=== PATIENT | male | born 1955 | race Caucasian/White ===

== ENCOUNTER 2022-03-10 08:58 | Emergency (ER) | payer MEDICAID ==
[~2022-03-10] VITALS: Ht 182.9 cm; Wt 136.1 kg
--- NOTE | 2022-03-10 09:35 | Diagnostic Imaging Report ---
EXAMINATION: Left foot radiographs, 3 views. COMPARISON: None. HISTORY: 66-year-old male, left foot pain after injury. FINDINGS: There is normal variant congenital fusion of the fifth digit middle and distal phalanges. There is a normal variant os peroneum. There is a calcaneal heel spur. There is soft tissue swelling dorsally at the level of the metatarsals. There is no identified radiopaque foreign body. There is no identified acute fracture. IMPRESSION: 1. No identified acute bony abnormality of the left foot. 2. Dorsal soft tissue swelling at the level of the metatarsals. 3. No identified radiopaque foreign body. Dictated by: Dictated on workstation # [id number]
--- NOTE | 2022-03-10 09:46 | ED Lower Extremity ---
General Chief Complaint: Lower Extremity Stated Complaint: LT FOOT INJ Nursing Triage Note: PT AMBULATE TO ROOM FS02 WITHOUT DIFFICULTY WITH C/O LEFT FOOT PAIN SINCE THURSDAY. PT REPORTS A PLASTIC GROCERY BAG BROKE AND A [address] MATTHEW FELL ONTO THE TOP OF LEFT FOOT. PT STATES HE HAS NOT NEEDED ANYTHING FOR PAIN. Source: patient Exam Limitations: no limitations History of Present Illness Date Seen by Provider: Mar 10, 2022 Time Seen by Provider: 09:30 Initial Comments Patient is a 66-year-old male who presents with left foot injury after tripping and hyperextending his toes 3 days ago. Patient denies other injury or pain complaint is able to weight-bear with limited difficulty. He has history of diabetic neuropathy noticed increased bruising and swelling in the past 2 to 3 days. Patient is not on anticoagulation therapy. Onset: just prior to arrival Pain/Injury Location: left foot Method of Injury: other Modifying Factors: Improves With Other Allergies and Home Medications Patient Home Medication List Home Medication List Reviewed: Yes Review of Systems Constitutional: see HPI Musculoskeletal: see HPI, joint swelling, muscle pain Past Vhhhzal-Akxgju-Tlvkbc Hx Patient Social History Tobacco Use?: No Smoking Status: Never a Smoker Smokeless Tobacco Frequency: Never a User Use of E-Cig and/or Vaping dev: No Use of E-Cig and/or Vaping Gilberto: Never a User Substance use?: No Alcohol Use?: No Pt feels they are or have been: No Immunizations Up To Date COVID19 Vaccine Tactical [employer] Party: [employer] Physical Exam Vital Signs Vital Signs - First Documented 03/10/22 09:14 Temp 36.2 Pulse 65 Resp 17 B/P (MAP) 156/100 (118) O2 Delivery Room Air Capillary Refill : Less Than 3 Seconds Height, Weight, BMI Height: '" Weight: lbs. oz. kg; 40.00 BMI Method: General Appearance: WD/WN, no apparent distress Feet: left foot ecchymosis, left foot soft tissue tenderness, left foot swelling (No skin breakdown); bilateral foot other Neurologic/Tendon: normal motor functions Progress/Results/Core Measures Results/Orders My Orders Orders - VASILE BUSH DO Foot 3 View Left (03/10/22 09:21) Vital Signs/I&O 03/10/22 09:14 Temp 36.2 Pulse 65 Resp 17 B/P (MAP) 156/100 (118) O2 Delivery Room Air Blood Pressure Mean: 118 Departure Communication (Admissions) Left foot x-ray: No obvious acute displaced fracture. No fracture evident on x-ray. We will place an orthopedic postop shoe for supportive care with instructions to follow-up with PCP or quill reamer as necessary. Impression Primary Impression: Sprain of left foot Disposition: HOME, SELF-CARE Condition: Stable Departure-Patient Inst. Decision time for Depature: 09:45 Referrals: FLIP GALLAGHER MD (PCP) Primary Care Physician Patient Instructions: Foot Sprain (DC) Add. Discharge Instructions: You were evaluated in the emergency department for left foot injury. X-rays were obtained do not show evidence of fracture. Please wear orthopedic shoe and keep foot elevated at rest. Follow-up with your PCP and/or quill reamer for reevaluation as needed. Return return to the ED if new or concerning symptoms. All discharge instructions reviewed with patient and/or family. Voiced understanding. VASILE BUSH DO Mar 10, 2022 09:46
[2022-03-10 09:54] VITALS: BP 151/85
== END 2022-03-10 09:54 | disposition home or self-care (01) ==
LOC: ER FS 09:01
DX: S93.602A Unspecified sprain of left foot, initial encounter (principal); W20.8XXA Other cause of strike by thrown, projected or falling object, initial encounter; W18.40XA Slipping, tripping and stumbling without falling, unspecified, initial encounter
CPT/HCPCS: 73630

== ENCOUNTER 2022-03-15 00:43 | Inpatient (IN) | payer MEDICAID ==
[~2022-03-15] VITALS: Ht 182.8 cm; Wt 142.9 kg
--- NOTE | 2022-03-15 00:47 | ED General ---
General Stated Complaint: SOB, CHEST PAINS History of Present Illness Date Seen by Provider: Mar 15, 2022 Time Seen by Provider: 00:46 Initial Comments 66-year-old male with PMH of asthma/DM2/mass abdominal hernia/colon cancer with colectomy, is here with complaints of shortness of breath, palpitations, and chest pressure for the past 2 to 3 days which has slowly been getting worse. Denies abdominal pain, nausea and vomiting, fever, cough, diarrhea. No known sick contacts. Allergies and Home Medications Allergies Coded Allergies: No Known Drug Allergies (Unverified , 03/10/22) Patient Home Medication List Home Medication List Reviewed: Yes Review of Systems Review of Systems Constitutional: no symptoms reported, see HPI EENTM: no symptoms reported Respiratory: short of breath Cardiovascular: palpitations Gastrointestinal: no symptoms reported Genitourinary: no symptoms reported Musculoskeletal: no symptoms reported Skin: no symptoms reported Psychiatric/Neurological: No Symptoms Reported Hematologic/Lymphatic: No Symptoms Reported Immunological/Allergic: no symptoms reported Physical Exam Vital Signs Vital Signs - First Documented 03/15/22 00:43 Temp 37.0 Pulse 156 Resp 26 B/P (MAP) 192/98 (129) Pulse Ox 95 O2 Delivery Room Air Capillary Refill : Height, Weight, BMI Height: '" Weight: lbs. oz. kg; 40.00 BMI Method: General Appearance: No Apparent Distress, WD/WN, Anxious, Obese HEENT: PERRL/EOMI, Normal ENT Inspection Neck: Full Range of Motion, Normal Inspection, Supple Respiratory: Chest Non Tender, Lungs Clear, Normal Breath Sounds, No Accessory Muscle Use, No Respiratory Distress, Wheezing (Occasional expiratory) Cardiovascular: Regular Rate, Rhythm, No Edema, No Gallop, No JVD Gastrointestinal: Soft, Hernia (massive umbilical hernia) Back: Normal Inspection, No CVA Tenderness, No Vertebral Tenderness Neurologic/Psychiatric: Alert, Oriented x3, No Motor/Sensory Deficits Skin: Normal Color Progress/Results/Core Measures Suspected Sepsis SIRS Temperature: Pulse: Respiratory Rate: Laboratory Tests 03/15/22 00:55: White Blood Count 9.8 Blood Pressure / Mean: Laboratory Tests 03/15/22 00:55: Creatinine 1.16, INR Comment 1.0, Platelet Count 243, Total Bilirubin 0.4 Results/Orders Lab Results Laboratory Tests Test 03/15/22 00:55 03/15/22 01:15 Range/Units White Blood Count 9.8 4.3-11.0 10^3/uL Red Blood Count 4.94 4.30-5.52 10^6/uL Hemoglobin 14.4 13.3-17.7 g/dL Hematocrit 43 40-54 % Mean Corpuscular Volume 87 80-99 fL Mean Corpuscular Hemoglobin 29 25-34 pg Mean Corpuscular Hemoglobin Concent 33 32-36 g/dL Red Cell Distribution Width 13.8 10.0-14.5 % Platelet Count 243 130-400 10^3/uL Mean Platelet Volume 10.2 9.0-12.2 fL Immature Granulocyte % (Auto) 0 % Neutrophils (%) (Auto) 70 42-75 % Lymphocytes (%) (Auto) 21 12-44 % Monocytes (%) (Auto) 6 0-12 % Eosinophils (%) (Auto) 2 0-10 % Basophils (%) (Auto) 1 0-10 % Neutrophils # (Auto) 6.9 1.8-7.8 10^3/uL Lymphocytes # (Auto) 2.1 1.0-4.0 10^3/uL Monocytes # (Auto) 0.6 0.0-1.0 10^3/uL Eosinophils # (Auto) 0.2 0.0-0.3 10^3/uL Basophils # (Auto) 0.1 0.0-0.1 10^3/uL Immature Granulocyte # (Auto) 0.0 0.0-0.1 10^3/uL Prothrombin Time 13.4 12.2-14.7 SEC INR Comment 1.0 0.8-1.4 Activated Partial Thromboplast Time 36 H 24-35 SEC D-Dimer 1.66 H 0.00-0.49 UG/ML Sodium Level 139 135-145 MMOL/L Potassium Level 3.7 3.6-5.0 MMOL/L Chloride Level 96 L 98-107 MMOL/L Carbon Dioxide Level 26 21-32 MMOL/L Anion Gap 17 H 5-14 MMOL/L Blood Urea Nitrogen 12 7-18 MG/DL Creatinine 1.16 0.60-1.30 MG/DL Estimat Glomerular Filtration Rate 70 BUN/Creatinine Ratio 10 Glucose Level 332 H 70-105 MG/DL Calcium Level 9.2 8.5-10.1 MG/DL Corrected Calcium 9.4 8.5-10.1 MG/DL Magnesium Level 1.5 L 1.6-2.4 MG/DL Total Bilirubin 0.4 0.1-1.0 MG/DL Aspartate Amino Transf (AST/SGOT) 23 5-34 U/L Alanine Aminotransferase (ALT/SGPT) 25 0-55 U/L Alkaline Phosphatase 101 40-136 U/L Troponin I < 0.30 <0.30 NG/ML Pro-B-Type Natriuretic Peptide 668.7 H <125.0 PG/ML Total Protein 7.5 6.4-8.2 GM/DL Albumin 3.8 3.2-4.5 GM/DL Serum Alcohol < 10 <10 MG/DL Influenza Type A (RT-PCR) Not Detected Not Detecte Influenza Type B (RT-PCR) Not Detected Not Detecte SARS-CoV-2 RNA (RT-PCR) Not Detected Not Detecte My Orders Orders - PADMINI CAIN MD Continuous Ekg Monitoring (03/15/22 01:01) Ekg Tracing (03/15/22 01:01) Diltiazem Injection (Cardizem Injection) (03/15/22 01:02) Diltiazem Drip Pre-Mix (Cardizem Drip Pr (03/15/22 01:03) Alcohol (03/15/22 01:04) Cbc With Automated Diff (03/15/22 01:04) Comprehensive Metabolic Panel (03/15/22 01:04) Fibrin Degradation Products (03/15/22 01:04) Drug Screen Stat (Urine) (03/15/22 01:04) Magnesium (03/15/22 01:04) Protime With Inr (03/15/22 01:04) Partial Thromboplastin Time (03/15/22 01:04) Ua Culture If Indicated (03/15/22 01:04) Probnp Fs (03/15/22 01:04) Troponin I Fs (03/15/22 01:04) Chest 1 View Ap/Pa Only (03/15/22 01:05) Ed Iv/Invasive Line Start (03/15/22 01:06) Monitor-Rhythm Ecg Trace Only (03/15/22 01:06) Covid 19 Inhouse Test (03/15/22 01:09) Influenza A And B By Pcr (03/15/22 01:09) Procalcitonin (Pct) (03/15/22 00:55) Ct Angio Chest W (03/15/22 03:03) Iohexol Injection (Omnipaque 350 Mg/Ml 1 (03/15/22 03:15) Received Contrast (Hold Metformin- Contr (03/15/22 03:15) Ns (Ivpb) (Sodium Chloride 0.9% Ivpb Bag (03/15/22 03:15) Svn Small Volume Nebulizer (03/15/22 03:22) Medications Given in ED Current Medications Medications Dose Ordered Sig/Radha Route Start Time Stop Time Status Last Admin Dose Admin Iohexol 100 ml ONCE ONCE IV 03/15/22 03:15 03/15/22 03:16 DC 03/15/22 03:29 100 ML Sodium Chloride 100 ml ONCE ONCE IV 03/15/22 03:15 03/15/22 03:16 DC 03/15/22 03:29 100 ML Vital Signs/I&O 03/15/22 03/15/22 03/15/22 00:43 01:12 01:18 Temp 37.0 Pulse 156 152 132 Resp 26 B/P (MAP) 192/98 (129) 183/114 184/103 Pulse Ox 95 O2 Delivery Room Air Capillary Refill : Progress Note : Progress Note 1.NEW ONSET A-FIB in RVR - EKG: A-Fib - Troponin undetected - CXR - Labs unremarkable - BNP - Cardizem bolus and drip with titrations as needed, heart rate improved but still elevated at max titration. Symptoms have improves - Metoprolol 25mg given today morning 2. ELEVATED D-DIMER: - D-dimer: 1.66 - CTA CHEST negative for PE 3. VIRAL PNEUMONIA: - CXR - COVID test/ Rapid flu negative - Azithro 500mg STAT - Duo neb given Departure Impression Primary Impression: New onset atrial fibrillation Additional Impressions: Elevated d-dimer Viral pneumonia Disposition: 30 STILL A PATIENT Condition: Stable Admissions Decision to Admit Reason: Admit from ER (General) Decision to Admit/Date: Mar 15, 2022 Time/Decision to Admit Time: 07:00 Transfer Method of Transfer: EMS Departure-Patient Inst. Referrals: FLIP GALLAGHER MD (PCP) Primary Care Physician PADMINI CAIN MD Mar 15, 2022 00:47
[2022-03-15] MEDS ORDERED: dilTIAZem DRIP PRE-MIX 125 ML IV STA (01:03)
[2022-03-15 01:18] LABS: BASOPHILS # (AUTO) 0.1 10^3/uL (0.0-0.1); BASOPHILS % (AUTO) 1 % (0-10); EOSINOPHILS # (AUTO) 0.2 10^3/uL (0.0-0.3); EOSINOPHILS % (AUTO) 2 % (0-10); HEMATOCRIT 43 % (40-54); HEMOGLOBIN 14.4 g/dL (13.3-17.7); LYMPHOCYTES # (AUTO) 2.1 10^3/uL (1.0-4.0); LYMPHOCYTES % (AUTO) 21 % (12-44); MEAN CORPUSCULAR HEMOGLOBIN 29 pg (25-34); MEAN CORPUSCULAR HGB CONC 33 g/dL (32-36); MEAN CORPUSCULAR VOLUME 87 fL (80-99); MEAN PLATELET VOLUME 10.2 fL (9.0-12.2); MONOCYTES # (AUTO) 0.6 10^3/uL (0.0-1.0); MONOCYTES % (AUTO) 6 % (0-12); NEUTROPHILS # (AUTO) 6.9 10^3/uL (1.8-7.8); NEUTROPHILS % (AUTO) 70 % (42-75); PLATELET COUNT 243 10^3/uL (130-400); WHITE BLOOD COUNT 9.8 10^3/uL (4.3-11.0)
[2022-03-15 01:26] LABS: BUN/CREATININE RATIO 10; CALCIUM 9.2 MG/DL (8.5-10.1); CARBON DIOXIDE 26 MMOL/L (21-32); CHLORIDE 96 MMOL/L (98-107); CREATININE SERUM 1.16 MG/DL (0.60-1.30); GFR ESTIMATED 70; MAGNESIUM 1.5 MG/DL (1.6-2.4); POTASSIUM 3.7 MMOL/L (3.6-5.0); SODIUM 139 MMOL/L (135-145)
[2022-03-15 01:27] LABS: ALANINE AMINOTRANSFERASE 25 U/L (0-55); ALBUMIN 3.8 GM/DL (3.2-4.5); ALKALINE PHOSPHATASE 101 U/L (40-136); BILIRUBIN,TOTAL 0.4 MG/DL (0.1-1.0); GLUCOSE 332 MG/DL (70-105); TOTAL PROTEIN 7.5 GM/DL (6.4-8.2)
[2022-03-15 01:34] LABS: PROTHROMBIN TIME PATIENT 13.4 SEC (12.2-14.7)
[2022-03-15 01:38] LABS: FIBRIN DEGRADATION PRODUCTS 1.66 UG/ML (0.00-0.49)
[2022-03-15] MEDS ORDERED: NS 100 ML (IVPB) BAG IV ONE (03:15)
[2022-03-15] MEDS ORDERED: HOLD METFORMIN - RECEIVED CONTRAST 20 ML VIAL IV SCH (03:15)
[2022-03-15] MEDS ORDERED: IOHEXOL 350 MG/ML 100 ML (OMNIPAQUE 350) VIAL IV ONE (03:15)
[2022-03-15] MEDS ORDERED: RT-ALBUTEROL/IPRATROPIUM 3 ML (DUONEB) VIAL INH ONE (03:30)
[2022-03-15 03:41] LABS: BILIRUBIN,URINE NEGATIVE (NEGATIVE); CLARITY,URINE CLEAR; COLOR,URINE YELLOW; GLUCOSE, URINE (UA) 2+ (NEGATIVE); KETONES,URINE NEGATIVE (NEGATIVE); LEUKOCYTE ESTERASE ,URINE NEGATIVE (NEGATIVE); NITRITE,URINE NEGATIVE (NEGATIVE); PROTEIN,URINE TRACE (NEGATIVE)
[2022-03-15 03:45] LABS: BACTERIA,URINE NEGATIVE /HPF; WBC,URINE 25-50 /HPF
[2022-03-15 03:54] LABS: AMPHETAMINE SCREEN, URINE NEGATIVE (NEGATIVE); BARBITURATE SCREEN URINE NEGATIVE (NEGATIVE); BENZODIAZEPINES SCREEN URINE NEGATIVE (NEGATIVE); CANNABINOID SCREEN, URINE NEGATIVE (NEGATIVE); COCAINE SCREEN URINE NEGATIVE (NEGATIVE); METHADONE STAT NEGATIVE (NEGATIVE); OPIATE SCREEN URINE NEGATIVE (NEGATIVE); OXYCODONE STAT NEGATIVE (NEGATIVE); TRICYCLIC ANTIDEPRESSANTS SCRE NEGATIVE (NEGATIVE)
[2022-03-15 03:55] LABS: PROPOXYPHENE STAT NEGATIVE (NEGATIVE)
[2022-03-15] MEDS ORDERED: AZITHROMYCIN 250 MG TAB (ZITHROMAX) PO ONE (07:00)
--- NOTE | 2022-03-15 07:19 | History & Physical-Hospitalist ---
History of Present Illness HPI/Chief Complaint Chief complaint: Chest pain atrial fibrillation new onset HPI: This is a 66-year-old male with a history of diabetes and abdominal hernia who presents to the [place] ER with new onset A. fib with RVR. Cardiology was consulted and Cardizem drip was initiated which helped the hypertension. 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 It appears that his sleep apnea has placed him at risk for cardiac arrhythmias such as this. He does have an abdominal hernia which is causing him no issues. Source: patient Exam Limitations: no limitations Date Seen 03/15/22 Time Seen by a Provider: 12:00 Attending Physician Zarina Neil MD PCP Admitting Physician: Attending Physician: Referring Physician Date of Admission Home Medications & Allergies Home Medications Reviewed patient Home Medication Reconciliation performed by pharmacy medication reconciliations electrical power station technician and/or nursing. Patients Allergies have been reviewed. Allergies Allergies Coded Allergies Penicillins (Verified Allergy, Unknown, 03/15/22) peanut (Verified Allergy, Unknown, 03/15/22) Past Wqpvamw-Judltm-Gnccxi Hx Patient Social History Marrital Status: single Employed/Student: unemployed Tobacco Use?: No Substance use?: No Alcohol Use?: No Pt feels they are or have been: No Current Status Advance Directives: No Communicates: Verbally Primary Language: Sudanese Preferred Spoken Language: Sudanese Is interpretation needed?: No Past Medical History Surgeries: Abdominal Sleep Apnea, COPD High Cholesterol, Hypertension Colon Did You Recieve Any Treatments: Yes What Type of Treatment Did You: Surgical Intervention Review of Systems Constitutional: see HPI EENTM: no symptoms reported Respiratory: dyspnea on exertion Cardiovascular: chest pain, palpitations Gastrointestinal: no symptoms reported Genitourinary: no symptoms reported Musculoskeletal: no symptoms reported Skin: no symptoms reported Psychiatric/Neurological: No Symptoms Reported All Other Systems Reviewed Negative Unless Noted: Yes Physical Exam Physical Exam Vital Signs Vital Signs - First Documented 03/15/22 03/15/22 03/15/22 00:43 10:25 12:21 Temp 37.0 Pulse 156 Resp 26 B/P (MAP) 192/98 (129) Pulse Ox 95 O2 Delivery Room Air O2 Flow Rate 2.00 FiO2 21 Capillary Refill : Less Than 3 Seconds Height, Weight, BMI Height: '" Weight: lbs. oz. kg; 44.00 BMI Method: General Appearance: No Apparent Distress, Chronically ill, Obese Eyes: Right Eye Normal Inspection, Right Eye PERRL HEENT: PERRL/EOMI, Normal ENT Inspection, Pharynx Normal, Moist Mucous Membranes Neck: Full Range of Motion, Normal Inspection, Non Tender Respiratory: Chest Non Tender, Lungs Clear, Normal Breath Sounds, No Accessory Muscle Use, No Respiratory Distress Cardiovascular: No Edema, No Gallop, No JVD, No Murmur, Normal Peripheral Pulses, Irregularly Irregular, Tachycardia Gastrointestinal: Normal Bowel Sounds, No Organomegaly, No Pulsatile Mass, Non Tender, Soft, Other (Hernia) Back: Normal Inspection, No CVA Tenderness, No Vertebral Tenderness Extremity: Normal Capillary Refill, Normal Inspection, Normal Range of Motion, Non Tender, No Calf Tenderness, No Pedal Edema Neurologic/Psychiatric: Alert, Oriented x3, No Motor/Sensory Deficits, Normal Mood/Affect Skin: Normal Color, Warm/Dry Lymphatic: No Adenopathy Results Results/Procedures Labs Laboratory Tests 03/15/22 00:55 03/16/22 05:10 Patient resulted labs reviewed. Assessment/Plan Admission Diagnosis Assessment: New onset A. fib with RVR Obstructive sleep apnea-uses apparatus at home he built himself? COPD Diabetes Abdominal hernia Colon cancer history Plan: Oral anticoagulants Cardizem drip Cardiology appreciated Echo Admission Status: Inpatient Order (span 2 midnights) Reason for Inpatient Admission: A. fib with RVR Diagnosis/Problems Diagnosis/Problems (1) New onset atrial fibrillation Status: Acute (2) Elevated d-dimer Status: Acute DAVID ROSEN DO Mar 15, 2022 07:19
--- NOTE | 2022-03-15 07:24 | Diagnostic Imaging Report ---
CHEST 1 VIEW AP/PA ONLY Indication: Heart palpitations Comparison: CTA chest of same day Findings: Low lung volumes. Bibasilar opacities are most likely on the basis of atelectasis, though edema may give this appearance. Layering small pleural effusions are better appreciated on CT. No pneumothorax. Heart is enlarged. Impression: 1. Bibasilar atelectasis versus pulmonary edema. Dictated by: Dictated on workstation # [id number]
--- NOTE | 2022-03-15 07:35 | Diagnostic Imaging Report ---
PROCEDURE: CT angiography of the chest with contrast. TECHNIQUE: Multiple contiguous axial images were obtained through the chest after uneventful bolus administration of intravenous contrast. 3D reconstructed CTA MIP acquisitions were also performed. Auto Exposure Controls were utilized during the CT exam to meet ALARA standards for radiation dose reduction. INDICATION: Short of breath since yesterday. History of asthma and abdominal hernia CTA of the chest with contrast 03/15/2022. FINDINGS: There are no central or proximal segmental pulmonary emboli. Atherosclerotic disease noted in the aorta with no acute aortic abnormalities. There is no significant mediastinal adenopathy. A single minimally prominent precarinal lymph node is noted just over a centimeter in greatest dimension. There is lymphadenopathy within the right hilum. Most prominent lymph node measures 2.1 cm in greatest dimension. Prominent subcarinal lymph node partially calcified also noted. There are small to moderate bilateral pleural effusions. There is no pericardial effusion. Within the lungs scattered airspace opacities diffusely throughout all lungs noted some of which is likely atelectasis although a patchy early infiltrate is not excluded. Additionally there are coarsened interstitial markings bilaterally suggesting edema. A more nodular appearing area in the right perihilar region measures 2 cm. There is a nodular airspace opacity in the right lung apex image 47 measuring 1.2 cm. Multiple smaller similar nodularity seen towards the superior apex on the right. The visualized upper abdominal structures unremarkable for acute abnormality. There is no acute osseous abnormality. IMPRESSION: 1. No central or proximal segmental pulmonary emboli. 2. Bilateral pleural effusions. 3. Patchy bilateral airspace opacities likely atelectasis although mild early infiltrate not excluded. More nodular density seen throughout the right lung which should be followed to assure complete resolution as lung nodules not excluded. 4. Mild lymphadenopathy within the right hilum and mediastinum which could be reactive but follow-up recommended to exclude metastatic process. 5. Findings of pulmonary edema. No [employer] report provided at the time of dictation Dictated by: Dictated on workstation # [id number]
[2022-03-15] MEDS ORDERED: dilTIAZem DRIP PRE-MIX 125 ML IV ONE (09:30)
[2022-03-15] MEDS ORDERED: BISACODYL 10 MG SUPP (DULCOLAX) PR PRN (10:30)
[2022-03-15] MEDS ORDERED: ACETAMINOPHEN 325 MG TABLET PO PRN (10:30)
[2022-03-15] MEDS ORDERED: MELATONIN 3 MG TABLET PO PRN (10:30)
[2022-03-15] MEDS ORDERED: ALPRAZolam 0.5 MG (XANAX) TAB PO PRN (10:30)
[2022-03-15] MEDS ORDERED: dilTIAZem DRIP PRE-MIX 125 ML IV SCH (10:30)
[2022-03-15] MEDS ORDERED: ONDANSETRON 4 MG/2 ML (SDV) Z0FRAN IV PRN (10:30)
[2022-03-15] MEDS ORDERED: polyethylene glycoL POWDER 17 GM (MIRALAX) PACK PO PRN (10:30)
[2022-03-15] MEDS ORDERED: diphenhydrAMINE 50 MG/ML INJ (BENADRYL) IVP PRN (10:30)
[2022-03-15] MEDS ORDERED: LORazepam INJ 2 MG/ML (ATIVAN) VIAL IVP PRN (10:30)
[2022-03-15] MEDS ORDERED: diphenhydrAMINE 25 MG TAB (BENADRYL) PO PRN (10:30)
[2022-03-15] MEDS ORDERED: morphine INJ 4 MG/ML 1 ML (VIAL/SYRINGE) IV PRN (10:30)
[2022-03-15] MEDS ORDERED: ONDANSETRON 4 MG (ZOFRAN) ORAL DISSOLVE TAB PO PRN (10:30)
[2022-03-15] MEDS ORDERED: NS IV 500 ML 500 ML IV PRN (10:30)
[2022-03-15] MEDS ORDERED: ENOXAPARIN 100 MG/1 ML (LOVENOX) SYR SC SCH (10:30)
[2022-03-15] MEDS ORDERED: ANTACID SUSP 30 ML UDC (MYLANTA) PO PRN (10:30)
[2022-03-15] MEDS ORDERED: ENOXAPARIN 150 MG/ML (LOVENOX) SYR SQ SCH (11:00)
[2022-03-15] MEDS: ASPIRIN 325 MG (5 GR) TABLET PO PRN ×2 (11:05→23:59)
[2022-03-15] MEDS: inSUlin ASPART (NovoLOG) 1 UNIT/0.01 ML (CHARGE PER UNIT) SC SCH ×3 (11:13→20:09)
[2022-03-15] MEDS ORDERED: ROSU5TAB PO (12:08)
[2022-03-15] MEDS ORDERED: AMLO-251 PO (12:08)
[2022-03-15] MEDS ORDERED: GLIM4TAB5 PO (12:08)
[2022-03-15] MEDS ORDERED: LINA5TAB PO (12:08)
[2022-03-15] MEDS: SALINE NASAL SPRAY (OCEAN) 45 ML BTL SCH ×4 (12:19→20:01)
[2022-03-15 12:21] VITALS: BP 192/98
[2022-03-15] MEDS ORDERED: RT-ALBUTEROL/IPRATROPIUM 3 ML (DUONEB) VIAL INH SCH (14:00)
[2022-03-15] MEDS: SIMETHICONE 80 MG (MYLICON) CHEW PO PRN ×2 (14:47→20:01)
--- NOTE | 2022-03-15 15:58 | Consultation-Cardiology ---
HPI-Cardiology Cardiology Consultation: Date of Consultation 03/15/22 Time Seen by a Provider: 15:00 Date of Admission Attending Physician Zarina Neil MD Admitting Physician Admitting Physician: Riri Weathers DO Attending Physician: Riri Weathers DO Consulting Physician SHELLY DIAZ MD, MA, FACP, FACC, [facility] [place], CCDS Physician requesting consult: Dr Weathers HPI: Chief Complaint: Reason for Card consult: A fib with RVR 66 yo man with a few days of increasing shortness of breath. No cp or palp or syncope. Mild leg swelling, chronic. No n/v/d. Gen malaise and weakness present Review of Systems-Cardiology Review of Systems Constitutional: As described under HPI Eyes: No vision change Ears/Nose/Throat: No ear discharge, No nasal drainage, No recent hearing loss Respiratory: As described under HPI Cardiovascular: As described under HPI Gastrointestinal: As described under HPI Genitourinary: No dysuria, No hematuria Musculoskeletal: No back pain Skin: No rash, No ulcerations Psychiatric/Neurological: No seizure, No focal weakness, No syncope Hematologic: No bleeding abnormalities PJB-Thfprj-Pisruy Hx Patient Social History Smoking Status: Never a Smoker Have you traveled recently?: No Alcohol Use?: No Pt feels they are or have been: No Immunizations Up To Date Date of Influenza Vaccine: Jan 09, 2022 Past Medical History PMH As described under Assessment. Family Medical History Family Medical History: Does not report fam h/o early CAD or SCD Allergies and Home Medications Allergies Coded Allergies: Penicillins (Verified Allergy, Unknown, 03/15/22) peanut (Verified Allergy, Unknown, 03/15/22) Patient Home Medication List Home Medication List Reviewed: Yes Amlodipine Besylate (Amlodipine Besylate) 10 Mg Tablet, 10 MG PO DAILY, (Reported) Entered as Reported by: JOANN CONRAD on 03/15/221207 Last Action: New Order Glimepiride (Glimepiride) 4 Mg Tablet, 4 MG PO DAILY, (Reported) Entered as Reported by: JOANN CONRAD on 03/15/221207 Last Action: New Order Linagliptin (Tradjenta) 5 Mg Tablet, 5 MG PO DAILY, (Reported) Entered as Reported by: JOANN CONRAD on 03/15/221207 Last Action: New Order Rosuvastatin Calcium (Crestor) 5 Mg Tablet, 5 MG PO TWICE A WEEK, (Reported) Entered as Reported by: JOANN CONRAD on 03/15/221207 Last Action: New Order Physical Exam-Cardiology Physical Exam Vital Signs/I&O 03/15/22 03/15/22 03/15/22 03/15/22 07:50 10:25 10:30 11:00 Pulse 107 101 92 Resp 16 20 B/P (MAP) 172/100 150/92 (111) 150/91 (110) Pulse Ox 95 93 91 O2 Delivery Nasal Cannula Nasal Cannula Nasal Cannula O2 Flow Rate 2.00 2.00 2.00 03/15/22 03/15/22 03/15/22 03/15/22 11:06 11:21 11:32 12:00 Temp 36.6 Pulse 103 B/P (MAP) 170/125 Pulse Ox 93 O2 Delivery Nasal Cannula O2 Flow Rate 2.00 03/15/22 03/15/22 03/15/22 03/15/22 12:00 12:21 12:48 12:59 Temp 37.0 Pulse 91 156 99 Resp 25 B/P (MAP) 129/98 (108) Pulse Ox 90 95 O2 Delivery Nasal Cannula Nasal Cannula O2 Flow Rate 2.00 2.00 FiO2 21 03/15/22 03/15/22 03/15/22 13:00 14:00 15:00 Pulse 96 111 106 Resp 21 30 16 B/P (MAP) 124/87 (99) 155/98 (117) 153/108 (123) Pulse Ox 89 92 92 O2 Delivery Nasal Cannula Nasal Cannula Nasal Cannula O2 Flow Rate 2.00 2.00 2.00 Capillary Refill : Less Than 3 Seconds Constitutional: AAO x 3, well-developed, well-nourished HEENT: EOMI, hearing is well preserved; No xanthelasmas are seen Neck: carotid pulses are 2 + bilaterally, with good upstrokes Respiratory: No accessory muscle use; other (fair to good bilateral air entry, some coarse and fine basal cracles) Cardiovascular: irregularly irregular, S1 and S2, systolic murmur (soft DANY at card base) Gastrointestinal: No tender; soft; No guarding; audible bowel sounds, other (large, ventral abdominal hernia ) Extremities: swelling (mild to mod, bilateral leg swelling); No clubbing, No cyanosis Neurologic/Psychiatric: oriented x 3, other (moves all limbs equally) Skin: No rash on exposed areas, No ulcerations on exposed areas Data Review Labs Laboratory Tests 03/15/22 00:55: White Blood Count 9.8, Red Blood Count 4.94, Hemoglobin 14.4, Hematocrit 43, Mean Corpuscular Volume 87, Mean Corpuscular Hemoglobin 29, Mean Corpuscular Hemoglobin Concent 33, Red Cell Distribution Width 13.8, Platelet Count 243, Mean Platelet Volume 10.2, Immature Granulocyte % (Auto) 0, Neutrophils (%) (Auto) 70, Lymphocytes (%) (Auto) 21, Monocytes (%) (Auto) 6, Eosinophils (%) (Auto) 2, Basophils (%) (Auto) 1, Neutrophils # (Auto) 6.9, Lymphocytes # (Auto) 2.1, Monocytes # (Auto) 0.6, Eosinophils # (Auto) 0.2, Basophils # (Auto) 0.1, Immature Granulocyte # (Auto) 0.0, Prothrombin Time 13.4, INR Comment 1.0, Activated Partial Thromboplast Time 36H, D-Dimer 1.66H, Sodium Level 139, Potassium Level 3.7, Chloride Level 96L, Carbon Dioxide Level 26, Anion Gap 17H, Blood Urea Nitrogen 12, Creatinine 1.16, Estimat Glomerular Filtration Rate 70, BUN/Creatinine Ratio 10, Glucose Level 332H, Calcium Level 9.2, Corrected Calcium 9.4, Magnesium Level 1.5L, Total Bilirubin 0.4, Aspartate Amino Transf (AST/SGOT) 23, Alanine Aminotransferase (ALT/SGPT) 25, Alkaline Phosphatase 101, Troponin I < 0.30, Pro-B-Type Natriuretic Peptide 668.7H, Total Protein 7.5, Albumin 3.8, Procalcitonin 0.04, Serum Alcohol < 10 03/15/22 01:15: Influenza Type A (RT-PCR) Not Detected, Influenza Type B (RT-PCR) Not Detected, SARS-CoV-2 RNA (RT-PCR) Not Detected 03/15/22 03:33: Urine Color YELLOW, Urine Clarity CLEAR, Urine pH 7.0, Urine Specific [place] 1.015L, Urine Protein TRACEH, Urine Glucose (UA) 2+H, Urine Ketones NEGATIVE, Urine Nitrite NEGATIVE, Urine Bilirubin NEGATIVE, Urine Urobilinogen 0.2, Urine Leukocyte Esterase NEGATIVE, Urine RBC (Auto) NEGATIVE, Urine RBC 2-5H, Urine WBC 25-50H, Urine Crystals NONE, Urine Bacteria NEGATIVE, Urine Casts NONE, Urine Mucus NEGATIVE, Urine Culture Indicated YES, Urine Opiates Screen NEGATIVE, Urine Oxycodone Screen NEGATIVE, Urine Methadone Screen NEGATIVE, Urine Propoxyphene Screen NEGATIVE, Urine Barbiturates Screen NEGATIVE, Ur Tricyclic Antidepressants Screen NEGATIVE, Urine Phencyclidine Screen NEGATIVE, Urine Amphetamines Screen NEGATIVE, Urine Methamphetamines Screen NEGATIVE, Urine Benzodiazepines Screen NEGATIVE, Urine Cocaine Screen NEGATIVE, Urine Cannabinoids Screen NEGATIVE 03/15/22 11:09: Glucometer 295H 03/15/22 15:50: Glucometer 272H Laboratory Tests 03/15/22 00:55 A/P-Cardiology Assessment/Admission Diagnosis A Fib with RVR - age of onset of A Fib unknown, first diagnosed on 03/14/22 - echo on 03/15/22: LVEF 55-60%, mild enlargement of LA Ac diastolic CHF due to A Fib with RVR DM II - managed by Dr Weathers H/o colon CA for which he underwent surgery 3-4 yrs ago, he says Large, ventral abdominal hernia Lung nodule on CT chest - managed by Dr Weathers Discussion and Recomendations * dilt and bb for vent rate control * apixaban for stroke prophylaxis * furosemide for CHF * other problems being managed by the [facility] * monitor labs SHELLY DIAZ MD [facility]S Mar 15, 2022 15:57
[2022-03-15] MEDS ORDERED: RT-ALBUTEROL/IPRATROPIUM 3 ML (DUONEB) VIAL INH PRN (16:00)
[2022-03-15] MEDS ORDERED: FUROSEMIDE 40 MG (LASIX) TAB PO NR (16:15)
[2022-03-15] MEDS ORDERED: KCL 10 MEQ TAB (MICRO K) PO NR (16:15)
[2022-03-15] MEDS: meTOprolol SUCCINATE 100 MG (TOPROL XL) TAB PO SCH (16:19)
[2022-03-15] MEDS: RT-ALBUTEROL/IPRATROPIUM 3 ML (DUONEB) VIAL INH SCH ×2 (19:02→22:06)
[2022-03-15] MEDS: DOCUSATE SODIUM 100 MG (COLACE) CAP PO SCH (20:00)
[2022-03-15] MEDS: APIXABAN 5 MG (ELIQUIS) TABLET PO SCH (20:01)
[2022-03-16] MEDS: inSUlin ASPART (NovoLOG) 1 UNIT/0.01 ML (CHARGE PER UNIT) SC SCH ×2 (05:27→14:05)
[2022-03-16 05:29] LABS: BASOPHILS % (AUTO) 0 % (0-10); EOSINOPHILS # (AUTO) 0.1 10^3/uL (0.0-0.3); EOSINOPHILS % (AUTO) 1 % (0-10); HEMATOCRIT 40 % (40-54); HEMOGLOBIN 13.4 g/dL (13.3-17.7); LYMPHOCYTES # (AUTO) 1.8 10^3/uL (1.0-4.0); LYMPHOCYTES % (AUTO) 18 % (12-44); MEAN CORPUSCULAR HEMOGLOBIN 29 pg (25-34); MEAN CORPUSCULAR HGB CONC 34 g/dL (32-36); MEAN CORPUSCULAR VOLUME 87 fL (80-99); MEAN PLATELET VOLUME 9.7 fL (9.0-12.2); MONOCYTES # (AUTO) 0.8 10^3/uL (0.0-1.0); MONOCYTES % (AUTO) 8 % (0-12); NEUTROPHILS # (AUTO) 7.4 10^3/uL (1.8-7.8); NEUTROPHILS % (AUTO) 73 % (42-75); PLATELET COUNT 207 10^3/uL (130-400); WHITE BLOOD COUNT 10.1 10^3/uL (4.3-11.0)
[2022-03-16 05:53] LABS: ALBUMIN 3.4 GM/DL (3.2-4.5); BILIRUBIN,TOTAL 0.9 MG/DL (0.1-1.0); CALCIUM 8.8 MG/DL (8.5-10.1); CREATININE SERUM 1.17 MG/DL (0.60-1.30); MAGNESIUM 1.5 MG/DL (1.6-2.4); POTASSIUM 3.5 MMOL/L (3.6-5.0); TOTAL PROTEIN 6.6 GM/DL (6.4-8.2)
[2022-03-16] MEDS ORDERED: MAGNESIUM 1 GM/100 ML IVPB 100 ML IV SCH (06:00)
[2022-03-16] MEDS ORDERED: KCL 20 MEQ TAB (K-DUR) PO SCH (06:00)
[2022-03-16] MEDS ORDERED: POTASSIUM CL 10MEQ/50ML IVPB 50 ML IV SCH (06:00)
--- NOTE | 2022-03-16 06:01 | Progress Note - Hospitalist ---
Subjective HPI/CC On Admission Date Seen by Provider: Mar 16, 2022 Time Seen by Provider: 11:30 Chief complaint: Chest pain atrial fibrillation new onset HPI: This is a 66-year-old male with a history of diabetes and abdominal hernia who presents to the [place] ER with new onset A. fib with RVR. Cardiology was consulted and Cardizem drip was initiated which helped the hypertension. 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 It appears that his sleep apnea has placed him at risk for cardiac arrhythmias such as this. He does have an abdominal hernia which is causing him no issues. Review of Systems Pulmonary: Dyspnea Objective Exam Vital Signs Vital Signs Date Time Temp Pulse Resp B/P (MAP) Pulse Ox O2 Delivery O2 Flow Rate FiO2 03/16/22 13:00 93 03/16/22 12:00 35.8 16 111/87 (95) 95 High Flow N/C 2.00 03/15/22 12:21 21 Capillary Refill : Less Than 3 Seconds General Appearance: No Apparent Distress, WD/WN, Chronically ill Respiratory: Lungs Clear, Normal Breath Sounds Cardiovascular: Regular Rate, Rhythm, Irregularly Irregular Neurologic/Psychiatric: Alert, Oriented x3, No Motor/Sensory Deficits, Normal Mood/Affect Results/Procedures Lab Laboratory Tests 03/16/22 05:10 Patient resulted labs reviewed. Assessment/Plan Assessment and Plan Assess & Plan/Chief Complaint Assessment: New onset A. fib with RVR Obstructive sleep apnea-uses apparatus at home he built himself? COPD Diabetes Abdominal hernia Colon cancer history Plan: Oral anticoagulants Cardizem drip Cardiology appreciated Echo Diagnosis/Problems Diagnosis/Problems (1) New onset atrial fibrillation Status: Acute (2) Elevated d-dimer Status: Acute DAVID ROSEN DO Mar 16, 2022 06:01
[2022-03-16] MEDS ORDERED: KCL 10 MEQ TAB (MICRO K) PO SCH (07:00)
[2022-03-16] MEDS: RT-ALBUTEROL/IPRATROPIUM 3 ML (DUONEB) VIAL INH SCH ×2 (07:39→11:35)
[2022-03-16] MEDS ORDERED: FUROSEMIDE 40 MG (LASIX) TAB PO SCH (09:00)
[2022-03-16] MEDS: KCL 10 MEQ TAB (MICRO K) PO SCH ×2 (09:44→14:05)
[2022-03-16] MEDS: DOCUSATE SODIUM 100 MG (COLACE) CAP PO SCH (09:44)
[2022-03-16] MEDS: SALINE NASAL SPRAY (OCEAN) 45 ML BTL SCH ×2 (09:45→14:05)
[2022-03-16] MEDS: APIXABAN 5 MG (ELIQUIS) TABLET PO SCH (09:45)
[2022-03-16] MEDS: meTOprolol SUCCINATE 100 MG (TOPROL XL) TAB PO SCH (09:46)
[2022-03-16] MEDS ORDERED: FURO40TA4 PO (12:19)
[2022-03-16] MEDS ORDERED: DILT300C52 PO (12:19)
[2022-03-16] MEDS ORDERED: POTA-160 PO (12:19)
[2022-03-16] MEDS ORDERED: OXC5T PO (12:19)
[2022-03-16] MEDS ORDERED: APIX5TAB PO (12:19)
[2022-03-16] MEDS ORDERED: MTP100TCR PO (12:19)
--- NOTE | 2022-03-16 12:22 | Discharge Summary ---
Discharge Summary Hospital Course Was the Problem List Reviewed?: Yes Problems/Dx: (1) New onset atrial fibrillation Status: Acute (2) Elevated d-dimer Status: Acute Hospital Course Date of Admission: Mar 15, 2022 at 10:20 Admission Diagnosis : Family Physician/Provider: Zarina Neil MD Date of Discharge: 03/16/22 Discharge Diagnosis: [ ] Hospital Course: Short course after he was admitted for new onset AF RVR. OAC initiated. Dr Amos consulted. No issues during course. Home meds restarted but holding Norvasc. Labs and Pending Lab Test: Laboratory Tests 03/15/22 15:50: Glucometer 272H 03/15/22 20:06: Glucometer 324H 03/16/22 05:10: White Blood Count 10.1, Red Blood Count 4.57, Hemoglobin 13.4, Hematocrit 40, Mean Corpuscular Volume 87, Mean Corpuscular Hemoglobin 29, Mean Corpuscular Hemoglobin Concent 34, Red Cell Distribution Width 13.8, Platelet Count 207, Mean Platelet Volume 9.7, Immature Granulocyte % (Auto) 0, Neutrophils (%) (Auto) 73, Lymphocytes (%) (Auto) 18, Monocytes (%) (Auto) 8, Eosinophils (%) (Auto) 1, Basophils (%) (Auto) 0, Neutrophils # (Auto) 7.4, Lymphocytes # (Auto) 1.8, Monocytes # (Auto) 0.8, Eosinophils # (Auto) 0.1, Basophils # (Auto) 0.0, Immature Granulocyte # (Auto) 0.0, Sodium Level 135, Potassium Level 3.5L, Chloride Level 100, Carbon Dioxide Level 23, Anion Gap 12, Blood Urea Nitrogen 13, Creatinine 1.17, Estimat Glomerular Filtration Rate 70, BUN/Creatinine Ratio 11, Glucose Level 241H, Calcium Level 8.8, Corrected Calcium 9.3, Magnesium Level 1.5L, Total Bilirubin 0.9, Aspartate Amino Transf (AST/SGOT) 21, Alanine Aminotransferase (ALT/SGPT) 27, Alkaline Phosphatase 67, Total Protein 6.6, Albumin 3.4 03/16/22 05:24: Glucometer 209H 03/16/22 11:11: Glucometer 296H Microbiology 03/15/22 MRSA Screen - Final, Complete MRSA not isolated Home Meds Active Furosemide 40 Mg Tablet 40 Mg PO DAILY Klor-Con 10 (Potassium Chloride) 10 Meq Tablet.er 10 Meq PO DAILY Oxyir Tablet (Oxycodone HCl) 5 Mg Tab 5 Mg PO Q4HR PRN Diltiazem 24Hr ER (Diltiazem HCl) 300 Mg Cap.er.24h 300 Mg PO DAILY Metoprolol Succinate 100 Mg Tab.er.24h 100 Mg PO DAILY Eliquis (Apixaban) 5 Mg Tablet 5 Mg PO BID Reported Amlodipine Besylate 10 Mg Tablet 10 Mg PO DAILY Crestor (Rosuvastatin Calcium) 5 Mg Tablet 5 Mg PO TWICE A WEEK Tradjenta (Linagliptin) 5 Mg Tablet 5 Mg PO DAILY Glimepiride 4 Mg Tablet 4 Mg PO DAILY Assessment/Pt Instructions PCP 1 week Discharge Planning: <30 minutes discharge planning Discharge Physical Examination Vital Signs Vital Signs Date Time Temp Pulse Resp B/P (MAP) Pulse Ox O2 Delivery O2 Flow Rate FiO2 03/16/22 08:00 93 Nasal Cannula 2.00 03/16/22 08:00 36.0 118 13 134/84 (101) 03/15/22 12:21 21 General Appearance: No Apparent Distress, WD/WN, Chronically ill Allergies: Coded Allergies: Penicillins (Verified Allergy, Unknown, 03/15/22) peanut (Verified Allergy, Unknown, 03/15/22) Discharge Summary Date of Admission Mar 15, 2022 at 10:20 Date of Discharge Discharge Date: Mar 16, 2022 Admission Diagnosis Assessment: New onset A. fib with RVR Obstructive sleep apnea-uses apparatus at home he built himself? COPD Diabetes Abdominal hernia Colon cancer history Plan: Oral anticoagulants Cardizem drip Cardiology appreciated Echo Discharge Diagnosis Assessment: New onset A. fib with RVR Obstructive sleep apnea-uses apparatus at home he built himself? COPD Diabetes Abdominal hernia Colon cancer history Plan: Oral anticoagulants Cardizem drip Cardiology appreciated Echo (1) New onset atrial fibrillation Status: Acute (2) Elevated d-dimer Status: Acute DAVID ROSEN DO Mar 16, 2022 12:22
--- NOTE | 2022-03-16 14:37 | Progress Note - Cardiology ---
Cardiology SOAP Progress Note Subjective: Shortness of breath has improved No cp or palp or syncope No n/v/d No focal weakness Chronic leg swelling, unchanged Objective: I&O/Vital Signs 03/16/22 03/16/22 03/16/22 03/16/22 02:36 04:27 04:30 07:00 Temp 36.1 Pulse 120 112 108 110 Resp 22 24 B/P (MAP) 140/86 (104) 127/105 (112) 141/100 (114) Pulse Ox 96 95 93 O2 Delivery Nasal Cannula Nasal Cannula Nasal Cannula O2 Flow Rate 2.00 2.00 2.00 03/16/22 03/16/22 03/16/22 03/16/22 07:39 08:00 08:00 12:00 Temp 36.0 35.8 Pulse 118 87 Resp 13 16 B/P (MAP) 134/84 (101) 111/87 (95) Pulse Ox 91 92 93 95 O2 Delivery Nasal Cannula High Flow N/C Nasal Cannula High Flow N/C O2 Flow Rate 2.00 2.00 2.00 2.00 03/16/22 13:00 Pulse 93 03/16/22 00:00 Intake Total 1090 ml Output Total 625 ml Balance 465 ml Constitutional: AAO x 3, well-developed, well-nourished Respiratory: No accessory muscle use; other (fair to good bilateral air entry, some coarse and fine basal cracles) Cardiovascular: irregularly irregular, S1 and S2, systolic murmur (soft DANY at card base) Gastrointestional: No tender; soft; No guarding; audible bowel sounds, other (large, ventral abdominal hernia ) Extremities: swelling (mild to mod, bilateral leg swelling); No clubbing, No cyanosis Neurologic/Psychiatric: oriented x 3, other (moves all limbs equally) Skin: No rash on exposed areas, No ulcerations on exposed areas Results/Procedures: Labs Laboratory Tests 03/15/22 15:50: Glucometer 272H 03/15/22 20:06: Glucometer 324H 03/16/22 05:10: White Blood Count 10.1, Red Blood Count 4.57, Hemoglobin 13.4, Hematocrit 40, Mean Corpuscular Volume 87, Mean Corpuscular Hemoglobin 29, Mean Corpuscular Hemoglobin Concent 34, Red Cell Distribution Width 13.8, Platelet Count 207, Mean Platelet Volume 9.7, Immature Granulocyte % (Auto) 0, Neutrophils (%) (Auto) 73, Lymphocytes (%) (Auto) 18, Monocytes (%) (Auto) 8, Eosinophils (%) (Auto) 1, Basophils (%) (Auto) 0, Neutrophils # (Auto) 7.4, Lymphocytes # (Auto) 1.8, Monocytes # (Auto) 0.8, Eosinophils # (Auto) 0.1, Basophils # (Auto) 0.0, Immature Granulocyte # (Auto) 0.0, Sodium Level 135, Potassium Level 3.5L, Chloride Level 100, Carbon Dioxide Level 23, Anion Gap 12, Blood Urea Nitrogen 13, Creatinine 1.17, Estimat Glomerular Filtration Rate 70, BUN/Creatinine Ratio 11, Glucose Level 241H, Calcium Level 8.8, Corrected Calcium 9.3, Magnesium Level 1.5L, Total Bilirubin 0.9, Aspartate Amino Transf (AST/SGOT) 21, Alanine Aminotransferase (ALT/SGPT) 27, Alkaline Phosphatase 67, Total Protein 6.6, Albumin 3.4 03/16/22 05:24: Glucometer 209H 03/16/22 11:11: Glucometer 296H Microbiology 03/15/22 MRSA Screen - Final, Complete MRSA not isolated Laboratory Tests 03/15/22 00:55 03/16/22 05:10 A/P: Assessment: A Fib with RVR - age of onset of A Fib unknown, first diagnosed on 03/14/22 - echo on 03/15/22: LVEF 55-60%, mild enlargement of LA Ac diastolic CHF due to A Fib with RVR DM II - managed by Dr Weathers Chronic, bilat leg swelling likely related to venous insuff and amlodipine H/o colon CA for which he underwent surgery 3-4 yrs ago, he says Large, ventral abdominal hernia Lung nodule on CT chest - managed by Dr Weathers Plan: * dilt and bb for vent rate control * apixaban for stroke prophylaxis * furosemide for CHF * replenish K * d/c amlodipine * other problems being managed by SHELLY Magdaleno MD FACP [facility] Mar 16, 2022 14:37
== END 2022-03-16 15:48 | disposition home or self-care (01) | DRG 308 ==
LOC: EDUNIT# 00:43 → ER FS 00:45 → ICU 03:27 → UNDOADMIN 03:27 → OBSVTOIN 10:20 → ICU 10:20 → CSD 19:36
PROVIDERS: ADMIT Internal Medicine; ATTEND Internal Medicine
DX: I48.91 Unspecified atrial fibrillation (principal); I50.31 Acute diastolic (congestive) heart failure; J44.0 Chronic obstructive pulmonary disease with (acute) lower respiratory infection; G47.33 Obstructive sleep apnea (adult) (pediatric); E11.9 Type 2 diabetes mellitus without complications; I11.0 Hypertensive heart disease with heart failure; K42.9 Umbilical hernia without obstruction or gangrene; Z20.822 Contact with and (suspected) exposure to COVID-19; E78.00 Pure hypercholesterolemia, unspecified; R91.1 Solitary pulmonary nodule; Z79.84 Long term (current) use of oral hypoglycemic drugs; Z85.038 Personal history of other malignant neoplasm of large intestine; Z90.49 Acquired absence of other specified parts of digestive tract; Z88.0 Allergy status to penicillin; I87.2 Venous insufficiency (chronic) (peripheral); T46.1X5A Adverse effect of calcium-channel blockers, initial encounter
CPT/HCPCS: 36415; 71045; 71275; 80053; 80306; 80320; 81000; 82947; 83735; 83880; 84145; 84484; 85025; 85379; 85610; 85730; 87081; 87088; 87636; 93005; 93041; 93306; 94640; 94760; Q9967

== ENCOUNTER 2022-03-21 03:22 | Emergency (ER) | payer MEDICAID ==
[~2022-03-21] VITALS: Ht 182.8 cm; Wt 148.2 kg
[~2022-03-21 03:22] MED LIST: AMLO-251 PO; APIX5TAB PO; DILT300C52 PO; FURO40TA4 PO; GLIM4TAB5 PO; LINA5TAB PO; MTP100TCR PO; OXC5T PO; POTA-160 PO; ROSU5TAB PO
--- NOTE | 2022-03-21 04:12 | ED GI ---
General Stated Complaint: BOWEL BLOCKAGE,WHEEZING History of Present Illness Date Seen by Provider: Mar 21, 2022 Time Seen by Provider: 03:43 Initial Comments 66-year-old male with PMH of asthma/DM2/mass abdominal hernia/colon cancer with colectomy, is here with complaints of abdominal distension and constipation for the last few days which has been significantly worsening since yesterday. Pt states that his abdomen is enlarged that is pushing up against his lungs and causing shortness of breath. Patient was in the ER a few days ago and was transferred to [facility] for new onset atrial fibrillation. Denies fever, chills, chest pain, palpitations, headache, dizziness, dysuria. Allergies and Home Medications Allergies Coded Allergies: Penicillins (Verified Allergy, Unknown, 03/15/22) peanut (Verified Allergy, Unknown, 03/15/22) Patient Home Medication List Home Medication List Reviewed: Yes Apixaban (Eliquis) 5 Mg Tablet, 5 MG PO BID Prescribed by: DAVID ROSEN on 03/16/221218 Last Action: Last Taken Edited Diltiazem HCl (Diltiazem 24Hr ER) 300 Mg Cap.er.24h, 300 MG PO DAILY Prescribed by: DAVID ROSEN on 03/16/221218 Last Action: Last Taken Edited Furosemide (Furosemide) 40 Mg Tablet, 40 MG PO DAILY Prescribed by: DAVID ORSEN on 03/16/221218 Last Action: Last Taken Edited Glimepiride (Glimepiride) 4 Mg Tablet, 4 MG PO DAILY, (Reported) Entered as Reported by: JOANN CONRAD on 03/15/221207 Last Action: Last Taken Edited Linagliptin (Tradjenta) 5 Mg Tablet, 5 MG PO DAILY, (Reported) Entered as Reported by: JOANN CONRAD on 03/15/221207 Last Action: Last Taken Edited Metoprolol Succinate (Metoprolol Succinate) 100 Mg Tab.er.24h, 100 MG PO DAILY Prescribed by: DAVID ROSEN on 03/16/221218 Last Action: Last Taken Edited Oxycodone Hcl (Oxyir Tablet) 5 Mg Tab, 5 MG PO Q4HR PRN for PAIN-SEE DOSE INSTRUCTIONS Prescribed by: DAVID ROSEN on 03/16/221219 Last Action: Last Taken Edited Potassium Chloride (Klor-Con 10) 10 Meq Tablet.er, 10 MEQ PO DAILY Prescribed by: DAVID ROSEN on 03/16/22 1219 Last Action: Last Taken Edited Rosuvastatin Calcium (Crestor) 5 Mg Tablet, 5 MG PO TWICE A WEEK, (Reported) Entered as Reported by: JOANN CONRAD on 03/15/22 1208 Last Action: Last Taken Edited Discontinued Medications Amlodipine Besylate (Amlodipine Besylate) 10 Mg Tablet, 10 MG PO DAILY, (Reported) Entered as Reported by: JOANN CONRAD on 03/15/22 1208 Review of Systems Review of Systems Constitutional: no symptoms reported EENTM: No Symptoms Reported Respiratory: No Symptoms Reported Cardiovascular: No Symptoms Reported, Lightheadedness Gastrointestinal: Abdomen Distended, Constipated, Poor Appetite Genitourinary: No Symptoms Reported Musculoskeletal: no symptoms reported Skin: no symptoms reported Psychiatric/Neurological: No Symptoms Reported Endocrine: No Symptoms Reported Hematologic/Lymphatic: No Symptoms Reported Past Ifojmtb-Bwbjqj-Zpvdcr Hx Past Medical History Abdominal Sleep Apnea, COPD High Cholesterol, Hypertension Colon Did You Recieve Any Treatments: Yes What Type of Treatment Did You: Surgical Intervention Physical Exam Vital Signs Vital Signs - First Documented 03/21/22 03:40 Temp 36.0 Pulse 114 Resp 28 B/P (MAP) 158/99 (118) Pulse Ox 94 O2 Delivery Room Air Capillary Refill : Height/Weight/BMI Height: '" Weight: lbs. oz. kg; 42.76 BMI Method: General Appearance: moderate distress HEENT: PERRL/EOMI, normal ENT inspection, TMs normal, pharynx normal Respiratory: chest non-tender, lungs clear, normal breath sounds, no respiratory distress, no accessory muscle use Cardiovascular: regular rate, rhythm, no edema Gastrointestinal: normal bowel sounds (Distant), non tender, soft Extremities: normal range of motion Back: normal inspection, no CVA tenderness Neurologic/Psychiatric: alert, normal mood/affect, oriented x 3 Skin: normal color Focused Exam Lactate Level 03/21/22 05:30: Lactic Acid Level 1.68 Lactic Acid Level Laboratory Tests Test 03/21/22 05:30 Lactic Acid Level 1.68 MMOL/L (0.50-2.00) Progress/Results/Core Measures Results/Orders Lab Results Laboratory Tests Test 03/21/22 04:13 03/21/22 04:30 03/21/22 05:30 Range/Units White Blood Count 11.5 H 4.3-11.0 10^3/uL Red Blood Count 5.10 4.30-5.52 10^6/uL Hemoglobin 14.8 13.3-17.7 g/dL Hematocrit 44 40-54 % Mean Corpuscular Volume 87 80-99 fL Mean Corpuscular Hemoglobin 29 25-34 pg Mean Corpuscular Hemoglobin Concent 33 32-36 g/dL Red Cell Distribution Width 13.6 10.0-14.5 % Platelet Count 302 130-400 10^3/uL Mean Platelet Volume 9.8 9.0-12.2 fL Immature Granulocyte % (Auto) 0 % Neutrophils (%) (Auto) 75 42-75 % Lymphocytes (%) (Auto) 17 12-44 % Monocytes (%) (Auto) 6 0-12 % Eosinophils (%) (Auto) 1 0-10 % Basophils (%) (Auto) 0 0-10 % Neutrophils # (Auto) 8.6 H 1.8-7.8 10^3/uL Lymphocytes # (Auto) 1.9 1.0-4.0 10^3/uL Monocytes # (Auto) 0.7 0.0-1.0 10^3/uL Eosinophils # (Auto) 0.2 0.0-0.3 10^3/uL Basophils # (Auto) 0.0 0.0-0.1 10^3/uL Immature Granulocyte # (Auto) 0.0 0.0-0.1 10^3/uL Prothrombin Time 14.5 12.2-14.7 SEC INR Comment 1.1 0.8-1.4 Activated Partial Thromboplast Time 36 H 24-35 SEC Sodium Level 137 135-145 MMOL/L Potassium Level 4.3 3.6-5.0 MMOL/L Chloride Level 97 L 98-107 MMOL/L Carbon Dioxide Level 30 21-32 MMOL/L Anion Gap 10 5-14 MMOL/L Blood Urea Nitrogen 16 7-18 MG/DL Creatinine 1.28 0.60-1.30 MG/DL Estimat Glomerular Filtration Rate 62 BUN/Creatinine Ratio 13 Glucose Level 307 H 70-105 MG/DL Calcium Level 10.1 8.5-10.1 MG/DL Corrected Calcium 10.1 8.5-10.1 MG/DL Magnesium Level 2.1 1.6-2.4 MG/DL Total Bilirubin 0.4 0.1-1.0 MG/DL Aspartate Amino Transf (AST/SGOT) 26 5-34 U/L Alanine Aminotransferase (ALT/SGPT) 25 0-55 U/L Alkaline Phosphatase 100 40-136 U/L Troponin I < 0.30 <0.30 NG/ML Pro-B-Type Natriuretic Peptide 534.3 H <125.0 PG/ML Total Protein 8.1 6.4-8.2 GM/DL Albumin 4.0 3.2-4.5 GM/DL Lipase 49 8-78 U/L Urine Color YELLOW Urine Clarity CLEAR Urine pH 7.0 5-9 Urine Specific [place] 1.020 1.016-1.022 Urine Protein NEGATIVE NEGATIVE Urine Glucose (UA) 1+ H NEGATIVE Urine Ketones NEGATIVE NEGATIVE Urine Nitrite NEGATIVE NEGATIVE Urine Bilirubin NEGATIVE NEGATIVE Urine Urobilinogen 0.2 < = 1.0 MG/DL Urine Leukocyte Esterase TRACE H NEGATIVE Urine RBC (Auto) 1+ H NEGATIVE Urine RBC 5-10 H /HPF Urine WBC 2-5 /HPF Urine Squamous Epithelial Cells 0-2 /HPF Urine Crystals PRESENT H /LPF Urine Amorphous Sediment FEW ROXY PHOSPHATE H /LPF Urine Bacteria FEW H /HPF Urine Casts PRESENT /LPF Urine Hyaline Casts 0-2 H /LPF Urine Mucus SMALL H /LPF Urine Culture Indicated YES Lactic Acid Level 1.68 0.50-2.00 MMOL/L My Orders Orders - PADMINI CAIN MD Cbc With Automated Diff (03/21/22 04:19) Comprehensive Metabolic Panel (03/21/22 04:19) Lactic Acid Analyzer (03/21/22 04:19) Lipase (03/21/22 04:19) Magnesium (03/21/22 04:19) Protime With Inr (03/21/22 04:19) Partial Thromboplastin Time (03/21/22 04:19) Ua Culture If Indicated (03/21/22 04:19) Probnp Fs (03/21/22 04:19) Troponin I Fs (03/21/22 04:19) O2 (03/21/22 04:25) Iohexol Injection (Omnipaque 350 Mg/Ml 1 (03/21/22 04:45) Received Contrast (Hold Metformin- Contr (03/21/22 04:45) Sodium Chloride Flush (Catheter Flush Sy (03/21/22 04:45) Ns (Ivpb) (Sodium Chloride 0.9% Ivpb Bag (03/21/22 04:45) Urine Culture (03/21/22 04:30) Ct Abdomen/Pelvis Wo (03/21/22 05:35) Vital Signs/I&O 03/21/22 03:40 Temp 36.0 Pulse 114 Resp 28 B/P (MAP) 158/99 (118) Pulse Ox 94 O2 Delivery Room Air Progress Progress Note : Progress Note 1. ABDOMINAL DISTENSION/ CONSTIPATION/ UTI: - CT ABDOMEN: Post-op changes, no obstruction , chronic moderate pleural effusion - LabsWBC is 11.5 with eft shift - UA is positive for leukocyte esterase, RBC, bacteria - Lactic acid normal - Prescription for Bactrim for 5 days bid -Patient has appointment set up with cardiology and PCP already. Advised to keep appointments -Patient had multiple bowel movements while in the ER and he feels much better -The patient was seen in the ED, and treated appropriately to presentation at a specific point in time. Patient is informed that there is a possibility that disease and illness can evolve and change in acuity rapidly or slowly after patient is discharged from the ER. Precautionary advice given to the patient for immediate return to ER if symptoms worsen or do not resolve, and to seek emergency care sooner rather than later. Pt also advised on the importance of PCP follow up and compliance with management and follow up plan with PCP and/or specialist, as this is part of the management plan. Pt verbally expressed understanding. Diagnostic Imaging Diagonstic Imaging: CT Plain Films/CT/US/NM/MRI: chest, abdomen Comments [facility]. [place], [place] NAME: LATRELL CHAVIS [facility] REC#: [id number] PT STATUS: REG ER : 1955 PHYSICIAN: PADMINI CAIN MD ADMIT DATE: 03/21/22/ER FS Draft Date of Exam:03/21/22 CT ABDOMEN/PELVIS WO INDICATION: Bowel obstruction. TECHNIQUE: Multiple contiguous axial images were obtained through the abdomen and pelvis without the use of intravenous contrast. Auto Exposure Controls were utilized during the CT exam to meet ALARA standards for radiation dose reduction. There is no prior CT of the abdomen and pelvis for comparison. IV contrast was attempted but apparently the contrast leaked and was not injected. FINDINGS: Visualized portions of the lung bases demonstrate moderate-sized bilateral pleural effusions with bibasilar infiltrate versus atelectasis. There is no free intraperitoneal air. The liver shows no focal lesion. Gallbladder appear normal. Spleen, adrenals, and pancreas appear normal. Kidneys bilaterally show no hydronephrosis or stone. There is no retroperitoneal mass or adenopathy. There is no ascites or abscess. There are surgical sutures in the rectal region. There is no sign of bowel obstruction. There are postoperative changes in the anterior abdominal wall with thinning of anterior abdominal wall. A ventral hernia in the epigastric region is noted without obstruction. IMPRESSION: Postop changes in the anterior abdominal wall with ventral hernia present. No sign of obstruction or bowel wall thickening. No evidence of intra-abdominal abscess. There are moderate-sized bilateral pleural effusions with bibasilar infiltrate versus atelectasis. Dictated on workstation # [id number] Dict: 03/21/22 0558 Trans: 03/21/22 0627 [id number] Interpreted by: MILAGROS NEVILLE MD Electronically signed by: Departure Impression Primary Impression: Constipation Additional Impression: Acute cystitis with hematuria Disposition: 01 HOME, SELF-CARE Condition: Stable Departure-Patient Inst. Referrals: FLIP GALLAGHER MD (PCP/Family) Primary Care Physician Patient Instructions: Constipation, Adult ED, Acute Cystitis (DC) Add. Discharge Instructions: - Prescription for Bactrim for 5 days bid -Patient has appointment set up with cardiology and PCP already. Advised to keep appointments PADMINI CAIN MD Mar 21, 2022 04:12
[2022-03-21 04:26] LABS: BASOPHILS % (AUTO) 0 % (0-10); EOSINOPHILS # (AUTO) 0.2 10^3/uL (0.0-0.3); EOSINOPHILS % (AUTO) 1 % (0-10); HEMATOCRIT 44 % (40-54); HEMOGLOBIN 14.8 g/dL (13.3-17.7); LYMPHOCYTES # (AUTO) 1.9 10^3/uL (1.0-4.0); LYMPHOCYTES % (AUTO) 17 % (12-44); MEAN CORPUSCULAR HEMOGLOBIN 29 pg (25-34); MEAN CORPUSCULAR HGB CONC 33 g/dL (32-36); MEAN CORPUSCULAR VOLUME 87 fL (80-99); MEAN PLATELET VOLUME 9.8 fL (9.0-12.2); MONOCYTES # (AUTO) 0.7 10^3/uL (0.0-1.0); MONOCYTES % (AUTO) 6 % (0-12); NEUTROPHILS # (AUTO) 8.6 10^3/uL (1.8-7.8); NEUTROPHILS % (AUTO) 75 % (42-75); PLATELET COUNT 302 10^3/uL (130-400); WHITE BLOOD COUNT 11.5 10^3/uL (4.3-11.0)
[2022-03-21 04:42] LABS: INR 1.1 (0.8-1.4); PROTHROMBIN TIME PATIENT 14.5 SEC (12.2-14.7)
[2022-03-21 04:43] LABS: BILIRUBIN,URINE NEGATIVE (NEGATIVE); CLARITY,URINE CLEAR; COLOR,URINE YELLOW; GLUCOSE, URINE (UA) 1+ (NEGATIVE); KETONES,URINE NEGATIVE (NEGATIVE); LEUKOCYTE ESTERASE ,URINE TRACE (NEGATIVE); NITRITE,URINE NEGATIVE (NEGATIVE); PROTEIN,URINE NEGATIVE (NEGATIVE)
[2022-03-21] MEDS ORDERED: IOHEXOL 350 MG/ML 100 ML (OMNIPAQUE 350) VIAL IV ONE (04:45)
[2022-03-21] MEDS ORDERED: CATHETER FLUSH 10 ML SYR IV PRN (04:45)
[2022-03-21] MEDS ORDERED: NS 100 ML (IVPB) BAG IV ONE (04:45)
[2022-03-21] MEDS ORDERED: HOLD METFORMIN - RECEIVED CONTRAST 20 ML VIAL IV SCH (04:45)
[2022-03-21 04:51] LABS: AMORPHOUS SEDIMENT,UR FEW AMOR PHOSPHATE /LPF; BACTERIA,URINE FEW /HPF; HYALINE CASTS, URINE 0-2 /LPF; SQUAMOUS EPITHELIAL CELL,UR 0-2 /HPF
[2022-03-21 05:00] LABS: ALANINE AMINOTRANSFERASE 25 U/L (0-55); ALKALINE PHOSPHATASE 100 U/L (40-136); BILIRUBIN,TOTAL 0.4 MG/DL (0.1-1.0); BUN/CREATININE RATIO 13; CALCIUM 10.1 MG/DL (8.5-10.1); CARBON DIOXIDE 30 MMOL/L (21-32); CHLORIDE 97 MMOL/L (98-107); CREATININE SERUM 1.28 MG/DL (0.60-1.30); GFR ESTIMATED 62; GLUCOSE 307 MG/DL (70-105); MAGNESIUM 2.1 MG/DL (1.6-2.4); POTASSIUM 4.3 MMOL/L (3.6-5.0); SODIUM 137 MMOL/L (135-145); TOTAL PROTEIN 8.1 GM/DL (6.4-8.2)
[2022-03-21 05:01] LABS: LIPASE 49 U/L (8-78)
--- NOTE | 2022-03-21 06:29 | Diagnostic Imaging Report ---
INDICATION: Bowel obstruction. TECHNIQUE: Multiple contiguous axial images were obtained through the abdomen and pelvis without the use of intravenous contrast. Auto Exposure Controls were utilized during the CT exam to meet ALARA standards for radiation dose reduction. There is no prior CT of the abdomen and pelvis for comparison. IV contrast was attempted but apparently the contrast leaked and was not injected. FINDINGS: Visualized portions of the lung bases demonstrate moderate-sized bilateral pleural effusions with bibasilar infiltrate versus atelectasis. There is no free intraperitoneal air. The liver shows no focal lesion. Gallbladder appear normal. Spleen, adrenals, and pancreas appear normal. Kidneys bilaterally show no hydronephrosis or stone. There is no retroperitoneal mass or adenopathy. There is no ascites or abscess. There are surgical sutures in the rectal region. There is no sign of bowel obstruction. There are postoperative changes in the anterior abdominal wall with thinning of anterior abdominal wall. A ventral hernia in the epigastric region is noted without obstruction. IMPRESSION: Postop changes in the anterior abdominal wall with ventral hernia present. No sign of obstruction or bowel wall thickening. No evidence of intra-abdominal abscess. There are moderate-sized bilateral pleural effusions with bibasilar infiltrate versus atelectasis. Dictated by: Dictated on workstation # [id number]
[2022-03-21] MEDS ORDERED: SULF1TAB38 PO (06:52)
[2022-03-21 06:59] VITALS: BP 122/88
== END 2022-03-21 06:59 | disposition home or self-care (01) ==
LOC: EDUNIT# 03:22 → ER FS 03:24
DX: K59.00 Constipation, unspecified (principal); N30.01 Acute cystitis with hematuria; Z88.0 Allergy status to penicillin
CPT/HCPCS: 36415; 74176; 80053; 81000; 83605; 83690; 83735; 83880; 84484; 85025; 85610; 85730; 87088

== ENCOUNTER 2022-03-21 15:54 | Emergency (ER) | payer MEDICAID ==
[~2022-03-21 15:54] MED LIST changes: +SULF1TAB38 PO
--- NOTE | 2022-03-21 16:36 | ED General ---
General Chief Complaint: General Problems/Pain Stated Complaint: LOW O2 LEVEL Source of Information: Patient Exam Limitations: No Limitations History of Present Illness Date Seen by Provider: Mar 21, 2022 Time Seen by Provider: 15:55 Initial Comments 66-year-old male coming in to be evaluated due to general malaise and feeling tired. Was seen in the ER yesterday for constipation. Lab work unremarkable and CT without obstruction. Discharged home in stable condition at that time. He just wanted to be sure that his blood sugar was okay, and his A. fib was not out of control today. Denying any chest pain, shortness of breath, or any symptoms related to that Allergies and Home Medications Allergies Coded Allergies: Penicillins (Verified Allergy, Unknown, 03/15/22) peanut (Verified Allergy, Unknown, 03/15/22) Patient Home Medication List Home Medication List Reviewed: Yes Apixaban (Eliquis) 5 Mg Tablet, 5 MG PO BID Prescribed by: DAVID ROSEN on 03/16/22 1219 Diltiazem HCl (Diltiazem 24Hr ER) 300 Mg Cap.er.24h, 300 MG PO DAILY Prescribed by: DAVID ROSEN on 03/16/22 1219 Furosemide (Furosemide) 40 Mg Tablet, 40 MG PO DAILY Prescribed by: DAVID ROSEN on 03/16/22 1219 Glimepiride (Glimepiride) 4 Mg Tablet, 4 MG PO DAILY, (Reported) Entered as Reported by: JOANN CONRAD on 03/15/22 1208 Linagliptin (Tradjenta) 5 Mg Tablet, 5 MG PO DAILY, (Reported) Entered as Reported by: JOANN CONRAD on 03/15/22 1208 Metoprolol Succinate (Metoprolol Succinate) 100 Mg Tab.er.24h, 100 MG PO DAILY Prescribed by: DAVID ROSEN on 03/16/22 1219 Oxycodone Hcl (Oxyir Tablet) 5 Mg Tab, 5 MG PO Q4HR PRN for PAIN-SEE DOSE INSTRUCTIONS Prescribed by: DAVID ROSEN on 03/16/22 1220 Potassium Chloride (Klor-Con 10) 10 Meq Tablet.er, 10 MEQ PO DAILY Prescribed by: DAVID ROSEN on 03/16/22 1219 Rosuvastatin Calcium (Crestor) 5 Mg Tablet, 5 MG PO TWICE A WEEK, (Reported) Entered as Reported by: JOANN CONRAD on 03/15/22 1208 Sulfamethoxazole/Trimethoprim (Bactrim Ds Tablet) 1 Each Tablet, 1 EACH PO BID Prescribed by: PADMINI CAIN MD on 03/21/22 0652 Discontinued Medications Amlodipine Besylate (Amlodipine Besylate) 10 Mg Tablet, 10 MG PO DAILY, (Report ed) Entered as Reported by: JOANN CONRAD on 03/15/22 1208 Review of Systems Review of Systems Constitutional: No fever EENTM: no symptoms reported Respiratory: no symptoms reported Cardiovascular: no symptoms reported Gastrointestinal: see HPI Genitourinary: no symptoms reported Musculoskeletal: no symptoms reported Skin: no symptoms reported Psychiatric/Neurological: No Symptoms Reported Hematologic/Lymphatic: No Symptoms Reported Immunological/Allergic: no symptoms reported All Other Systems Reviewed Negative Unless Noted: Yes Past Ompcbpj-Nvlbqd-Ojsezl Hx Patient Social History Tobacco Use?: No Use of E-Cig and/or Vaping dev: No Substance use?: No Alcohol Use?: No Pt feels they are or have been: No Immunizations Up To Date First/Initial COVID19 Vaccinat: 2020 Second COVID19 Vaccination Caio: 2020 Third COVID19 Vaccination Date: 2020 Past Medical History Surgery/Hospitalization HX: Colon Cancer, Colon resection with colostomy, Colostomy reversal, Abdominal hernia, Asthma Abdominal Sleep Apnea, COPD High Cholesterol, Hypertension Colon Did You Recieve Any Treatments: Yes What Type of Treatment Did You: Surgical Intervention Physical Exam Vital Signs Capillary Refill : Less Than 3 Seconds Height, Weight, BMI Height: '" Weight: lbs. oz. kg; 44.00 BMI Method: General Appearance: No Apparent Distress, WD/WN Eyes: Bilateral Eye Normal Inspection HEENT: PERRL/EOMI, Normal ENT Inspection, Pharynx Normal Neck: Full Range of Motion, Normal Inspection, Non Tender, Supple Respiratory: Chest Non Tender, Lungs Clear, Normal Breath Sounds, No Accessory Muscle Use, No Respiratory Distress Cardiovascular: No Edema, Normal Peripheral Pulses, Irregularly Irregular Gastrointestinal: Normal Bowel Sounds, Non Tender, Soft; No Distended, No Guarding Back: Normal Inspection, No CVA Tenderness Extremity: Normal Capillary Refill, Normal Inspection, Normal Range of Motion, Non Tender, No Calf Tenderness, No Pedal Edema Neurologic/Psychiatric: Alert, No Motor/Sensory Deficits, Normal Mood/Affect Skin: Normal Color, Warm/Dry Lymphatic: No Adenopathy Progress/Results/Core Measures Suspected Sepsis SIRS Temperature: Pulse: Respiratory Rate: Blood Pressure / Mean: Results/Orders Lab Results Laboratory Tests Test 03/21/22 16:21 Range/Units Glucometer 319 H 70-110 MG/DL My Orders Orders - DAGMAR MANZO MD Accucheck Stat ONCE (03/21/22 16:19) Ekg Tracing (03/21/22 16:19) Vital Signs/I&O Capillary Refill : Less Than 3 Seconds Progress Note : Progress Note Patient presented wanting to know his blood sugar and wanting to know if his A. fib is out of control. Blood sugar in the 300s. He states he just started on a new insulin pen, and can give himself more insulin. EKG in A. fib with heart rate in the 80s. Vitals otherwise unremarkable. I believe he stable for discharge with outpatient follow-up. He was sent home with strict return precautions. Prior to leaving, the patient had a large bowel movement, and was stating that he feels better than he is felt in quite a long time. ECG Initial ECG Impression Date: Mar 21, 2022 Initial ECG Impression Time: 16:26 Initial ECG Rate: 80 Initial ECG Rhythm: A Fib/Flutter Comment Narrow QRS, normal axis, no STEMI Departure Impression Primary Impression: Hyperglycemia Additional Impression: Afib Qualified Codes: I48.0 - Paroxysmal atrial fibrillation Disposition: 01 HOME, SELF-CARE Condition: Stable Departure-Patient Inst. Decision time for Depature: 16:36 Referrals: FLIP GALLAGHER MD (PCP/Family) Primary Care Physician Patient Instructions: High Blood Sugar, Adult ED Add. Discharge Instructions: Your blood sugar was in the 300s. Try to call your doctor and see if they need to make any changes to your medications. You can drink extra fluids and this can help with that as well. They have any concerns, he can always come back to the ER. Work/School Note: Work Release Form Date Seen in the Emergency Department: Mar 21, 2022 Return to Work: Mar 22, 2022 Restrictions: No Restrictions DAGMAR MANZO MD Mar 21, 2022 16:36
[2022-03-21 16:39] VITALS: BP 160/67
== END 2022-03-21 16:41 | disposition home or self-care (01) ==
LOC: EDUNIT# 15:54 → ER FS 15:56
DX: E11.65 Type 2 diabetes mellitus with hyperglycemia (principal); I48.91 Unspecified atrial fibrillation
CPT/HCPCS: 82947; 93005

== ENCOUNTER → 2022-04-22 | Outpatient (CLI) | payer MEDICAID ==
[~2022-04-22] MED LIST changes: +CATHETER FLUSH 10 ML SYR IVP PRN; +REGADENOSON 0.4 MG/5 ML SYR (LEXISCAN) IV ONE
[2022-04-22 13:23] VITALS: BP 158/92
--- NOTE | 2022-04-22 19:41 | STRESS TEST ---
DATE OF SERVICE: 04/22/2022 RESTING AND POST REGADENOSON TECHNETIUM-99M TETROFOSMIN SPECT CT IMAGING ORDERING PHYSICIAN: Dr. Maycol Amos. PRIMARY CARE PHYSICIAN: Dr. Zarina Neil. CLINICAL DIAGNOSIS: Chest discomfort. Baseline images were carried out after injection of 9.35 mCi technetium-99m Tetrofosmin. This was followed by 0.4 mg regadenoson and 28 mCi of technetium-99m tetrofosmin for stress imaging. The electrocardiogram showed atrial fibrillation with a somewhat rapid ventricular response throughout the study. The patient did not report any significant symptoms other than a feeling of some gas on a regular insulin infusion, which resolved in a few minutes. Review of images at rest and following stress does not indicate any significant perfusion defect consistent with myocardial ischemia or infarction. The tracer uptake appears to be somewhat patchy, but there is no distinct ischemic pattern. Gated images show a well-preserved global left ventricular systolic function, left ventricular ejection fraction was calculated to be 59%. CONCLUSIONS: 1. Atrial fibrillation with a somewhat rapid ventricular response throughout the study. 2. No significant myocardial ischemia or infarction is demonstrated on this study. 3. Well preserved global left ventricular systolic function with a calculated ejection fraction of 59%. Job ID: [id number] DocumentID: [id number] Dictated Date: 04/22/2022 15:48:50 Exceptional Student Education Teacher Date: 04/22/2022 19:40:00 Dictated By: MAYCOL AMOS MD; KILLIAN; FACP; FACC;
== END ==
LOC: CARD 12:00
PROVIDERS: ATTEND Internal Medicine Cardiovascular Disease
DX: I48.91 Unspecified atrial fibrillation (principal)
CPT/HCPCS: 78452; 93017; A9502

== ENCOUNTER 2022-05-08 00:51 | Emergency (ER) | payer MEDICAID, MEDICARE ==
[~2022-05-08] VITALS: Ht 175 cm; Wt 120.0 kg
[~2022-05-08 00:51] MED LIST changes: -CATHETER FLUSH 10 ML SYR IVP PRN; -REGADENOSON 0.4 MG/5 ML SYR (LEXISCAN) IV ONE
--- NOTE | 2022-05-08 01:09 | ED General ---
General Chief Complaint: Chest Pain Stated Complaint: L SIDE ARM/ELBOW PAIN,AFIB Source of Information: Patient Exam Limitations: No Limitations History of Present Illness Date Seen by Provider: May 08, 2022 Time Seen by Provider: 00:51 Initial Comments 66-year-old male with history of A. fib with average heart rate of 125, occasionally up in the 150s which is baseline for him presents to the emergency department for left elbow pain. He was told by his primary doctor that if he ever had pain in his arms and legs to come in for evaluation because he could "throw a blood clot." He is on Eliquis, he has not missed any doses. He states he has had a "knot" in his left elbow all day that has been tender to palpation. He has pain focally in the left elbow and some numbness distal to this. No swelling. No chest pain or shortness of breath. He denies any injury but does sleep on his side due to a large ventral hernia and thinks he may have slept on it wrong. Regarding his heart rate, he states is normal for him to have rates of 1 25-1 50 with atrial fibrillation. He is working with Dr. Amos and has an upcoming procedure, possible ablation to help fix this. Allergies and Home Medications Allergies Coded Allergies: Penicillins (Verified Allergy, Unknown, 03/15/22) peanut (Verified Allergy, Unknown, 03/15/22) Patient Home Medication List Home Medication List Reviewed: Yes Apixaban (Eliquis) 5 Mg Tablet, 5 MG PO BID Prescribed by: DAVID ROSEN on 03/16/22 1219 Diltiazem HCl (Diltiazem 24Hr ER) 300 Mg Cap.er.24h, 300 MG PO DAILY Prescribed by: DAVID ROSEN on 03/16/22 1219 Furosemide (Furosemide) 40 Mg Tablet, 40 MG PO DAILY Prescribed by: DAVID ROSEN on 03/16/22 1219 Glimepiride (Glimepiride) 4 Mg Tablet, 4 MG PO DAILY, (Reported) Entered as Reported by: JOANN CONRAD on 03/15/22 1208 Linagliptin (Tradjenta) 5 Mg Tablet, 5 MG PO DAILY, (Reported) Entered as Reported by: JOANN CONRAD on 03/15/22 1208 Metoprolol Succinate (Metoprolol Succinate) 100 Mg Tab.er.24h, 100 MG PO DAILY Prescribed by: DAVID ROSEN on 03/16/22 1219 Oxycodone Hcl (Oxyir Tablet) 5 Mg Tab, 5 MG PO Q4HR PRN for PAIN-SEE DOSE INSTRUCTIONS Prescribed by: DAVID ROSEN on 03/16/22 1220 Potassium Chloride (Klor-Con 10) 10 Meq Tablet.er, 10 MEQ PO DAILY Prescribed by: DAVID ROSEN on 03/16/22 1219 Rosuvastatin Calcium (Crestor) 5 Mg Tablet, 5 MG PO TWICE A WEEK, (Reported) Entered as Reported by: JOANN CONRAD on 03/15/22 1208 Sulfamethoxazole/Trimethoprim (Bactrim Ds Tablet) 1 Each Tablet, 1 EACH PO BID Prescribed by: PADMINI CAIN MD on 03/21/22 0652 Review of Systems Review of Systems Constitutional: no symptoms reported EENTM: no symptoms reported Respiratory: no symptoms reported Cardiovascular: no symptoms reported Gastrointestinal: no symptoms reported Genitourinary: no symptoms reported Musculoskeletal: joint pain Skin: no symptoms reported Psychiatric/Neurological: No Symptoms Reported Hematologic/Lymphatic: No Symptoms Reported Immunological/Allergic: no symptoms reported Past Atswzkr-Keizry-Zlsaqb Hx Patient Social History Tobacco Use?: No Use of E-Cig and/or Vaping dev: No Substance use?: No Alcohol Use?: No Immunizations Up To Date First/Initial COVID19 Vaccinat: 2020 Second COVID19 Vaccination Caio: 2020 Third COVID19 Vaccination Date: 2020 Past Medical History Surgery/Hospitalization HX: Colon Cancer, Colon resection with colostomy, Colostomy reversal, Abdominal hernia, Asthma Abdominal Sleep Apnea, COPD Atrial Fibrillation, High Cholesterol, Hypertension Colon Did You Recieve Any Treatments: Yes What Type of Treatment Did You: Surgical Intervention Family Medical History Reviewed Nursing Family Hx No Pertinent Family Hx Physical Exam Vital Signs Vital Signs - First Documented 05/08/22 01:00 Temp 36.6 Pulse 126 Resp 20 B/P (MAP) 118/66 (83) Pulse Ox 94 O2 Delivery Room Air Capillary Refill : Height, Weight, BMI Height: '" Weight: lbs. oz. kg; 44.00 BMI Method: General Appearance: No Apparent Distress, WD/WN HEENT: Normal ENT Inspection, Pharynx Normal Neck: Full Range of Motion, Non Tender, Supple Respiratory: Chest Non Tender, Lungs Clear, Normal Breath Sounds, No Accessory Muscle Use, No Respiratory Distress Cardiovascular: Normal Peripheral Pulses, Irregularly Irregular, Tachycardia, Other (rate 110-130) Gastrointestinal: Normal Bowel Sounds, No Organomegaly, No Pulsatile Mass, Non Tender, Soft, Other (Patient has a very large ventral abdominal hernia, diastases recti. This is nontender. No evidence for incarceration or strangulation.) Back: Normal Inspection, No Vertebral Tenderness Extremity: Normal Capillary Refill, Normal Inspection, Normal Range of Motion, No Calf Tenderness, Other (Focal tenderness in the lateral epicondyle of the left elbow. No swelling, deformity. Neurovascular motor and sensory intact distally.) Neurologic/Psychiatric: Alert, Oriented x3, No Motor/Sensory Deficits Skin: Normal Color, Warm/Dry Progress/Results/Core Measures Suspected Sepsis SIRS Temperature: Pulse: Respiratory Rate: Blood Pressure / Mean: Results/Orders My Orders Orders - BARBARA WALSH DO Ekg Tracing (05/08/22 00:56) Vital Signs/I&O 05/08/22 05/08/22 01:00 01:17 Temp 36.6 Pulse 126 135 Resp 20 18 B/P (MAP) 118/66 (83) 135/89 Pulse Ox 94 98 O2 Delivery Room Air Room Air Capillary Refill : ECG Comment Atrial fibrillation with rate of 129 bpm. Normal intervals outside of ID interval. Normal axis. No ST or T wave abnormality. Single isolated PVC. No STEMI. Departure Communication (Admissions) Patient has tachycardia with A. fib which he states is quite normal for him and he is not concerned about this at all. He has no chest pain, shortness of breath dizziness or lightheadedness. He does have a plan going forward following with Dr. Amos. He is very focal tenderness at lateral epicondyle left elbow. No injury, no deformity. Neurovascular and sensory intact distally. No indication for imaging. There is no evidence of blood clot or other acute emergent condition. Discharged home in stable condition with supportive care. Notably he did have a stress test earlier this month which was negative for any ischemia. Impression Primary Impression: Left elbow pain Disposition: 01 HOME, SELF-CARE Condition: Stable Departure-Patient Inst. Referrals: FLIP GALLAGHER MD (PCP/Family) Primary Care Physician Patient Instructions: Elbow Tendinopathy (Tennis and Golf Elbow) Add. Discharge Instructions: You were seen in the emergency department for left elbow pain. There is no evidence that this is from a blood clot. This appears to be coming from the bone or tendon in the area. There is no swelling or deformity. Give this some time to improve ultimately. Ice may help to reduce the pain some. Return to the emergency department for any severe concerns. Your heart rate is elevated, you have indicated this is normal for you. 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 All discharge instructions reviewed with patient and/or family. Voiced understanding. BARBARA WALSH DO May 08, 2022 01:09
[2022-05-08 01:17] VITALS: BP 135/89
== END 2022-05-08 01:25 | disposition home or self-care (01) ==
LOC: EDUNIT# 00:51 → ER FS 00:52
DX: M25.522 Pain in left elbow (principal); Z28.310 Unvaccinated for COVID-19; Z79.01 Long term (current) use of anticoagulants
CPT/HCPCS: 93005

== ENCOUNTER 2022-07-01 09:11 | Day surgery (SDC) | payer MEDICARE, MEDICAID ==
[~2022-07-01] VITALS: Ht 182.9 cm; Wt 143.2 kg
[2022-07-01] MEDS ORDERED: NS IV 1000 ML 1,000 ML ONE (09:43)
[2022-07-01] MEDS ORDERED: NS IV 1000 ML 1,000 ML IV SCH (09:45)
[2022-07-01] MEDS ORDERED: proPOfol 200 MG/20 ML (DIPRIVAN) VIAL IV ONE (10:03)
[2022-07-01 10:12] LABS: HEMATOCRIT 45 % (40-54); HEMOGLOBIN 14.5 g/dL (13.3-17.7); MEAN CORPUSCULAR HEMOGLOBIN 28 pg (25-34); MEAN CORPUSCULAR HGB CONC 32 g/dL (32-36); MEAN CORPUSCULAR VOLUME 85 fL (80-99); MEAN PLATELET VOLUME 9.7 fL (9.0-12.2); PLATELET COUNT 280 10^3/uL (130-400); WHITE BLOOD COUNT 10.6 10^3/uL (4.3-11.0)
[2022-07-01 10:22] LABS: POTASSIUM 3.7 MMOL/L (3.6-5.0)
[2022-07-01 10:23] LABS: CALCIUM 9.7 MG/DL (8.5-10.1)
[2022-07-01 10:24] LABS: TOTAL PROTEIN 8.2 GM/DL (6.4-8.2)
[2022-07-01 10:25] LABS: INR 1.1 (0.8-1.4); PROTHROMBIN TIME PATIENT 14.8 SEC (12.2-14.7)
[2022-07-01 10:26] LABS: BILIRUBIN,TOTAL 0.8 MG/DL (0.1-1.0)
[2022-07-01] MEDS ORDERED: SEMA0.25 SQ (10:26)
[2022-07-01] MEDS ORDERED: SITA50TA PO (10:26)
[2022-07-01] MEDS ORDERED: DILT300C51 PO (10:26)
[2022-07-01] MEDS ORDERED: LINA5TAB PO (10:26)
[2022-07-01] MEDS ORDERED: FURO80TA3 PO (10:26)
[2022-07-01] MEDS ORDERED: ROSU5TAB13 PO (10:26)
[2022-07-01] MEDS ORDERED: APIX5TAB PO (10:26)
[2022-07-01] MEDS ORDERED: GLIM4TAB5 PO (10:26)
[2022-07-01 10:28] LABS: CREATININE SERUM 1.16 MG/DL (0.60-1.30)
[2022-07-01 10:35] VITALS: BP 135/111
[2022-07-01 10:40] VITALS: BP 154/117
[2022-07-01 10:45] VITALS: BP 144/82
[2022-07-01 10:50] VITALS: BP 135/98
[2022-07-01 11:05] VITALS: BP 128/102
[2022-07-01 11:20] VITALS: BP 132/101
--- NOTE | 2022-07-01 13:30 | Anesthesia-General Post-Op ---
MAC Patient Condition Mental Status/LOC: Same as Preop Cardiovascular: Satisfactory Nausea/Vomiting: Absent Respiratory: Satisfactory Pain: Controlled Complications: Absent Post Op Complications Complications None Follow Up Care/Instructions Patient Instructions None needed. Anesthesiology Discharge Order Discharge Order Patient was doing well after the procedure with no complaints, stable vital signs, no apparent adverse anesthesia problems. No complications reported per nursing. THOR CRAWFORD 21, 2023 13:30
--- NOTE | 2022-07-01 17:46 | OPERATIVE REPORT ---
DATE OF SERVICE: 07/01/2022 PREOPERATIVE DIAGNOSIS: Atrial fibrillation. POSTOPERATIVE DIAGNOSIS: Atrial fibrillation. PROCEDURE: External electrical cardioversion. INDICATIONS: The patient is 66-year-old gentleman with persistent atrial fibrillation. He has been fully anticoagulated for several months without any interruption. His heart rate has been well controlled on diltiazem. Today, we proceeded with an attempt at external electrical cardioversion after having obtained an informed consent. DESCRIPTION OF OPERATION: The anesthesiologist provided short-acting anesthesia. A 120 joules of biphasic shock was delivered through external patches, which did not change atrial fibrillation to sinus rhythm. We then attempted 200 joules biphasic shock through external patches, which also did not convert atrial fibrillation to sinus rhythm. The patient tolerated the procedure well. Job ID: [id number] DocumentID: [id number] Dictated Date: 07/01/2022 10:57:31 Institutional Aide Date: 07/01/2022 17:44:00 Dictated By: SHELLY DIAZ MD; KILLIAN; FACP; FACC;
== END 2022-07-01 11:35 | disposition home or self-care (01) ==
LOC: CATH 09:11
PROVIDERS: ATTEND Internal Medicine Cardiovascular Disease
DX: I48.19 Other persistent atrial fibrillation (principal); E11.9 Type 2 diabetes mellitus without complications; J44.9 Chronic obstructive pulmonary disease, unspecified; R91.1 Solitary pulmonary nodule; M79.89 Other specified soft tissue disorders; I50.31 Acute diastolic (congestive) heart failure; Z79.01 Long term (current) use of anticoagulants; Z79.899 Other long term (current) drug therapy; Z85.038 Personal history of other malignant neoplasm of large intestine; Z79.84 Long term (current) use of oral hypoglycemic drugs; Z79.85 Long-term (current) use of injectable non-insulin antidiabetic drugs
CPT/HCPCS: 36415; 80053; 80061; 85027; 85610; 85730; 87081; 92960; 93005

== ENCOUNTER 2022-11-09 08:13 | Emergency (ER) | payer MEDICARE, MEDICAID ==
[~2022-11-09] VITALS: Ht 182 cm; Wt 122.0 kg
[~2022-11-09 08:13] MED LIST changes: +DILT300C51 PO; +FURO80TA3 PO; +ROSU5TAB13 PO; +SEMA0.25 SQ; +SITA50TA PO
[2022-11-09] MEDS ORDERED: NS IV 500 ML 500 ML IV STA (08:24)
[2022-11-09 08:31] LABS: BASOPHILS # (AUTO) 0.1 10^3/uL (0.0-0.1); BASOPHILS % (AUTO) 1 % (0-10); EOSINOPHILS # (AUTO) 0.2 10^3/uL (0.0-0.3); EOSINOPHILS % (AUTO) 2 % (0-10); HEMATOCRIT 47 % (40-54); LYMPHOCYTES # (AUTO) 2.4 10^3/uL (1.0-4.0); LYMPHOCYTES % (AUTO) 24 % (12-44); MEAN CORPUSCULAR HEMOGLOBIN 30 pg (25-34); MEAN CORPUSCULAR HGB CONC 34 g/dL (32-36); MEAN CORPUSCULAR VOLUME 88 fL (80-99); MEAN PLATELET VOLUME 9.5 fL (9.0-12.2); MONOCYTES # (AUTO) 0.6 10^3/uL (0.0-1.0); MONOCYTES % (AUTO) 6 % (0-12); NEUTROPHILS # (AUTO) 6.7 10^3/uL (1.8-7.8); NEUTROPHILS % (AUTO) 68 % (42-75); PLATELET COUNT 230 10^3/uL (130-400); WHITE BLOOD COUNT 9.9 10^3/uL (4.3-11.0)
--- NOTE | 2022-11-09 08:45 | Diagnostic Imaging Report ---
INDICATION: Irregular heartbeat COMPARISON: 03/15/2022 TECHNIQUE: Single radiograph of the chest dated 11/09/2022. FINDINGS: The cardiac silhouette is enlarged, though stable from the prior examination. No significant pulmonary vascular congestion. The lungs are clear of focal pulmonary opacity. No pleural effusion. No pneumothorax. No acute osseous abnormality. IMPRESSION: Persistent cardiomegaly without pulmonary vascular congestion or additional superimposed acute cardiopulmonary abnormality. Dictated by: Dictated on workstation # [id number]
[2022-11-09 08:48] LABS: INR 1.1 (0.8-1.4); PROTHROMBIN TIME PATIENT 14.3 SEC (12.2-14.7)
[2022-11-09 08:49] LABS: BUN/CREATININE RATIO 13; CALCIUM 9.4 MG/DL (8.5-10.1); CARBON DIOXIDE 25 MMOL/L (21-32); CHLORIDE 102 MMOL/L (98-107); CREATININE SERUM 1.49 MG/DL (0.60-1.30); GFR ESTIMATED 52; GLUCOSE 152 MG/DL (70-105); POTASSIUM 3.6 MMOL/L (3.6-5.0); SODIUM 140 MMOL/L (135-145)
[2022-11-09 08:50] LABS: ALANINE AMINOTRANSFERASE 29 U/L (0-55); ALBUMIN 3.9 GM/DL (3.2-4.5); ALKALINE PHOSPHATASE 79 U/L (40-136); BILIRUBIN,TOTAL 0.7 MG/DL (0.1-1.0); MAGNESIUM 2.2 MG/DL (1.6-2.4); TOTAL PROTEIN 7.5 GM/DL (6.4-8.2)
[2022-11-09 08:56] LABS: FIBRIN DEGRADATION PRODUCTS 0.65 UG/ML (0.00-0.49)
[2022-11-09 09:12] VITALS: BP 134/72
--- NOTE | 2022-11-09 09:12 | ED Cardiac General ---
History of Present Illness General Chief Complaint: Cardiac/General Problems Stated Complaint: IRREGULAR HEART RATE Nursing Triage Note: PT REPORTS HE FORGOT TO TAKE HIS ELIQUIS LAST NIGHT AND HE FELT LIKE HIS HEART WAS IRREGULAR THIS AM. HE WENT AHEAD AND TOOK HIS ELIQUIS THIS AM AT ABOUT 0630 AND THEN WENT TO URGENT CARE. THEY SENT HIM HERE FOR HIS A-FIB TO BE CHECKED OUT. Source: patient History of Present Illness Date Seen by Provider: Nov 09, 2022 Time Seen by Provider: 08:16 Initial Comments 67-year-old male presenting with complaints of missing a dose of Eliquis last night and diltiazem last night. He has a history of paroxysmal atrial fibrillation. He is usually well controlled with medications. [place] had been [place] He woke up this morning with sensation of his heart beating hard in his chest and felt irregular. He had gone to [facility] and they did confirm that he was in atrial fibrillation. He had taken his medication this morning. He was told he should come to the emergency department to be evaluated to make sure he did not have a blood clot. His vital signs at all looked good with oxygen saturation 97 to 99% on room air. His heart rate was irregular but was fluctuating from 70 up to 110 bpm. He had a good blood pressure of 165/88. He was afebrile. He denied having any chest pain, shortness of breath, nausea, vomiting, increased swelling or pain in his legs. 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: No ASA po IMPACT HAMMER OPERATOR: No Associated Systoms: No Chest Pain, No Cough, No Diaphoresis, No Fever/Chills, No Headaches, No Loss of Appetite, No Malaise, No Nausea/Vomiting, No Rash, No Seizure, No Shortness of Air, No Syncope, No Weakness Allergies and Home Medications Allergies Coded Allergies: Penicillins (Verified Allergy, Unknown, 03/15/22) peanut (Verified Allergy, Unknown, 03/15/22) Patient Home Medication List Home Medication List Reviewed: Yes Apixaban (Eliquis) 5 Mg Tablet, 5 MG PO BID, (Reported) Entered as Reported by: GITA JC on 07/01/22 1026 Diltiazem HCl (Diltiazem 24Hr Cd) 300 Mg Cap.er.24h, 300 MG PO DAILY, (Reported) Entered as Reported by: GITA JC on 07/01/22 1026 Furosemide (Furosemide) 80 Mg Tablet, 80 MG PO DAILY, (Reported) Entered as Reported by: GITA JC on 07/01/22 1026 Glimepiride (Glimepiride) 4 Mg Tablet, 4 MG PO DAILY, (Reported) Entered as Reported by: GITA JC on 07/01/22 1026 Linagliptin (Tradjenta) 5 Mg Tablet, 5 MG PO DAILY, (Reported) Entered as Reported by: GITA JC on 07/01/22 1026 Rosuvastatin Calcium (Rosuvastatin Calcium) 5 Mg Tablet, 5 MG PO SAT,THU, (Reported) Entered as Reported by: GITA JC on 07/01/22 1026 Semaglutide (Ozempic) 0.25 Mg/0.2 Ml Pen.injctr, 1 MG SQ THURSDAY, (Reported) Entered as Reported by: GITA JC on 07/01/22 1026 Sitagliptin Phosphate (Januvia) 50 Mg Tablet, 50 MG PO DAILY, (Reported) Entered as Reported by: GITA JC on 07/01/22 1026 Review of Systems Review of Systems Constitutional: No chills, No dizziness, No fever EENTM: No Symptoms Reported Respiratory: No Symptoms Reported Cardiovascular: See HPI Gastrointestinal: No Symptoms Reported Genitourinary: No Symptoms Reported Musculoskeletal: no symptoms reported Skin: no symptoms reported Psychiatric/Neurological: No Symptoms Reported Past Hrzoatt-Gulugw-Gnyzyg Hx Patient Social History Tobacco Use?: No Use of E-Cig and/or Vaping dev: No Substance use?: No Alcohol Use?: No Pt feels they are or have been: No Immunizations Up To Date First/Initial COVID19 Vaccinat: 2020 Second COVID19 Vaccination Caio: 2020 Third COVID19 Vaccination Date: 2020 Past Medical History Surgery/Hospitalization HX: Colon Cancer, Colon resection with colostomy, Colostomy reversal, Abdominal hernia, Asthma, A-Fib Abdominal Sleep Apnea, COPD Atrial Fibrillation, High Cholesterol, Hypertension Abdominal Hernia Colon Did You Recieve Any Treatments: Yes What Type of Treatment Did You: Surgical Intervention Family Medical History No Pertinent Family Hx Physical Exam Vital Signs Vital Signs - First Documented 11/09/22 08:20 Temp 35.4 Pulse 93 Resp 16 B/P (MAP) 165/98 (120) Pulse Ox 96 O2 Delivery Room Air Capillary Refill : Less Than 3 Seconds Height, Weight, BMI Height: '" Weight: lbs. oz. kg; 36.00 BMI Method: General Appearance: No Apparent Distress, WD/WN HEENT: PERRL/EOMI, Pharynx Normal Neck: Full Range of Motion, Normal Inspection, Non Tender, Supple Respiratory: Chest Non Tender, Lungs Clear, Normal Breath Sounds, No Accessory Muscle Use, No Respiratory Distress Cardiovascular: Normal Peripheral Pulses, Irregularly Irregular Gastrointestinal: Normal Bowel Sounds, No Pulsatile Mass, Non Tender, Soft, Hernia (large ventral hernia) Rectal: Deferred Extremity: Normal Capillary Refill, Normal Inspection, No Pedal Edema Neurologic/Psychiatric: Alert, Oriented x3 Skin: Normal Color, Warm/Dry Progress/Results/Core Measures Results/Orders Lab Results Laboratory Tests Test 11/09/22 08:30 Range/Units White Blood Count 9.9 4.3-11.0 10^3/uL Red Blood Count 5.35 4.30-5.52 10^6/uL Hemoglobin 16.0 13.3-17.7 g/dL Hematocrit 47 40-54 % Mean Corpuscular Volume 88 80-99 fL Mean Corpuscular Hemoglobin 30 25-34 pg Mean Corpuscular Hemoglobin Concent 34 32-36 g/dL Red Cell Distribution Width 15.7 H 10.0-14.5 % Platelet Count 230 130-400 10^3/uL Mean Platelet Volume 9.5 9.0-12.2 fL Immature Granulocyte % (Auto) 0 % Neutrophils (%) (Auto) 68 42-75 % Lymphocytes (%) (Auto) 24 12-44 % Monocytes (%) (Auto) 6 0-12 % Eosinophils (%) (Auto) 2 0-10 % Basophils (%) (Auto) 1 0-10 % Neutrophils # (Auto) 6.7 1.8-7.8 10^3/uL Lymphocytes # (Auto) 2.4 1.0-4.0 10^3/uL Monocytes # (Auto) 0.6 0.0-1.0 10^3/uL Eosinophils # (Auto) 0.2 0.0-0.3 10^3/uL Basophils # (Auto) 0.1 0.0-0.1 10^3/uL Immature Granulocyte # (Auto) 0.0 0.0-0.1 10^3/uL Prothrombin Time 14.3 12.2-14.7 SEC INR Comment 1.1 0.8-1.4 Activated Partial Thromboplast Time 39 H 24-35 SEC D-Dimer 0.65 H 0.00-0.49 UG/ML Sodium Level 140 135-145 MMOL/L Potassium Level 3.6 3.6-5.0 MMOL/L Chloride Level 102 98-107 MMOL/L Carbon Dioxide Level 25 21-32 MMOL/L Anion Gap 13 5-14 MMOL/L Blood Urea Nitrogen 20 H 7-18 MG/DL Creatinine 1.49 H 0.60-1.30 MG/DL Estimat Glomerular Filtration Rate 52 BUN/Creatinine Ratio 13 Glucose Level 152 H 70-105 MG/DL Calcium Level 9.4 8.5-10.1 MG/DL Corrected Calcium 9.5 8.5-10.1 MG/DL Magnesium Level 2.2 1.6-2.4 MG/DL Total Bilirubin 0.7 0.1-1.0 MG/DL Aspartate Amino Transf (AST/SGOT) 24 5-34 U/L Alanine Aminotransferase (ALT/SGPT) 29 0-55 U/L Alkaline Phosphatase 79 40-136 U/L Troponin I < 0.30 <0.30 NG/ML Pro-B-Type Natriuretic Peptide 556.0 H <125.0 PG/ML Total Protein 7.5 6.4-8.2 GM/DL Albumin 3.9 3.2-4.5 GM/DL My Orders Orders - TRAVIS MOY MD Ekg Tracing (11/09/22 08:17) Monitor-Rhythm Ecg Trace Only (11/09/22 08:17) Cbc With Automated Diff (11/09/22 08:23) Magnesium (11/09/22 08:23) Chest 1 View Ap/Pa Only (11/09/22 08:23) Comprehensive Metabolic Panel (11/09/22 08:23) Protime With Inr (11/09/22 08:23) Partial Thromboplastin Time (11/09/22 08:23) Ed Iv/Invasive Line Start (11/09/22 08:23) Troponin I Fs (11/09/22 08:23) Probnp Fs (11/09/22 08:23) Fibrin Degradation Products (11/09/22 08:23) Ns Iv 500 Ml (Sodium Chloride 0.9%) (11/09/22 08:24) Vital Signs/I&O 11/09/22 11/09/22 08:20 09:12 Temp 35.4 35.4 Pulse 93 84 Resp 16 16 B/P (MAP) 165/98 (120) 134/72 Pulse Ox 96 97 O2 Delivery Room Air Room Air Blood Pressure Mean: 120 Progress Progress Note #1: Progress Note Potential diagnosis of paroxysmal atrial fibrillation, missed doses of medicine, pulmonary embolism, myocardial infarction, acute heart failure, dehydration, electrolyte imbalance. Obtain peripheral IV access and send labs for complete blood count, comprehensive metabolic profile, magnesium, troponin, proBNP, coagulation factors, D-dimer. Administer normal saline 500 mL IV fluid bolus for hydration. 1 view chest x-ray to look for acute pathology in the chest. Placed on cardiac telemetry monitoring and my initial interpretation was that his heart rate was irregular and appeared to be atrial fibrillation and was fluctuating from 70 up to 110 bpm. Electrocardiogram to further evaluate the heart rate and rhythm. 0823 on my initial interpretation and review of his electrocardiogram it does show atrial fibrillation without ST elevation. His heart rate is 97 bpm. QT interval 364 ms with a QTc interval 418 ms. Overall appears similar to prior tracings in the system. Progress Note #2: Progress Note Complete blood count did not show an elevated white blood cell count or anemia to contribute to his symptoms. His comprehensive metabolic profile had shown some mild elevation of his BUN to 20 and creatinine to 1.49 with a glucose slightly elevated to 152. Encouraged to drink more fluids to help with his renal insufficiency. His magnesium was normal at 2.2. Troponin was negative at less than 0.3. He had mild elevation of his proBNP to 556. His D-dimer was 0.65 which when age-adjusted was at the cutoff and negative for a blood clot. His 1 view chest x-ray had shown some mild cardiomegaly and pulmonary edema but no acute process. Reassured patient and encouraged to drink fluids and stay well-hydrated. Make sure he is taking his medications as prescribed on time. Follow-up with the clinic for continued concerns. Initial ECG Impression Date: Nov 09, 2022 Initial ECG Impression Time: 08:23 Initial ECG Rate: 91 Initial ECG Rhythm: A Fib/Flutter Initial ECG Comparisson: Unchanged (07/01/2022) Comment on my initial interpretation and review of his electrocardiogram it does show atrial fibrillation without ST elevation. His heart rate is 97 bpm. QT interval 364 ms with a QTc interval 418 ms. Overall appears similar to prior tracing in the system from 07/01/2022. Diagnostic Imaging Diagonstic Imaging: Xray Plain Films/CT/US/NM/MRI: chest Comments [facility] [place] NAME: LATRELL CHAVIS [facility] REC#: [id number] PT STATUS: REG ER : 1955 PHYSICIAN: TRAVIS MOY MD ADMIT DATE: 11/09/22/ER FS Draft Date of Exam:11/09/22 CHEST 1 VIEW AP/PA ONLY INDICATION: Irregular heartbeat COMPARISON: 03/15/2022 TECHNIQUE: Single radiograph of the chest dated 11/09/2022. FINDINGS: The cardiac silhouette is enlarged, though stable from the prior examination. No significant pulmonary vascular congestion. The lungs are clear of focal pulmonary opacity. No pleural effusion. No pneumothorax. No acute osseous abnormality. IMPRESSION: Persistent cardiomegaly without pulmonary vascular congestion or additional superimposed acute cardiopulmonary abnormality. Dictated on workstation # [id number] Dict: 11/09/22 0842 Trans: 11/09/22 0844 CVB [id number] Interpreted by: SONY MOSQUEDA MD Electronically signed by: Reviewed: Reviewed by Me Departure Impression Primary Impression: Paroxysmal atrial fibrillation Disposition: 01 HOME, SELF-CARE Condition: Stable Departure-Patient Inst. Decision time for Depature: 09:05 Referrals: FLIP GALLAGHER MD (PCP/Family) Primary Care Physician Patient Instructions: Atrial Fibrillation and Atrial Flutter ED Add. Discharge Instructions: Your tests and vital signs are not showing evidence of blood clots or new heart damage Make sure you are taking your medicines as prescribed Try to avoid excessive heat. Stay well hydrated and drink plenty of water All discharge instructions reviewed with patient and/or family. Voiced understanding. TRAVIS MOY MD Nov 09, 2022 09:12
== END 2022-11-09 09:13 | disposition home or self-care (01) ==
LOC: EDUNIT# 08:13 → ER FS 08:15
DX: I48.0 Paroxysmal atrial fibrillation (principal); I51.7 Cardiomegaly; J81.1 Chronic pulmonary edema; R79.89 Other specified abnormal findings of blood chemistry; Z79.01 Long term (current) use of anticoagulants
CPT/HCPCS: 36415; 71045; 80053; 83735; 83880; 84484; 85025; 85379; 85610; 85730; 93005; 93041

== ENCOUNTER 2023-02-26 19:06 | Emergency (ER) | payer OTHER, MEDICARE, MEDICAID ==
[~2023-02-26] VITALS: Ht 182.8 cm; Wt 111.5 kg
[2023-02-26 19:06] VITALS: BP 155/93
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
== END 2023-02-26 19:28 | disposition home or self-care (01) ==
LOC: EDUNIT# 19:06 → ER FS 19:07
DX: S56.012A Strain of flexor muscle, fascia and tendon of left thumb at forearm level, initial encounter (principal); V89.2XXA Person injured in unspecified motor-vehicle accident, traffic, initial encounter; Y92.410 Unspecified street and highway as the place of occurrence of the external cause
CPT/HCPCS: 73130